=== PATIENT | male | born 1990 | race Caucasian/White ===

== ENCOUNTER 2021-02-12 04:47 | Emergency (ER) | payer BC, SELFPAY ==
[2021-02-12] VITALS (23 sets, daily range): BP systolic 126–168; BP diastolic 59–141; PULSE 90–123; RESP 6–30; TEMP 38.1–38.6; O2SAT 97–100
--- NOTE | ~2021-02-12 | XR_ITS ---
EXAMINATION: XR chest 1V portable DATE: 02/12/2021 06:45 INDICATION: Cough. Congestion. Fever. TECHNIQUE: A single frontal view of the chest was obtained on 2 radiographs. COMPARISON: None. FINDINGS: The chest demonstrates clear lungs without pneumonia, pleural effusion, or pneumothorax. Th e heart size is normal. IMPRESSION: 1. No acute cardiopulmonary disease. Reviewed, dictated and finalized at location A. [employer]
[2021-02-12] MEDS: ACETAMINOPHEN 500 MG TABLET 1000 MG PO (06:39)
--- NOTE | 2021-02-12 08:08 | ED.URI ---
HPI - URI/Sore Throat General Chief Complaint: Upper Respiratory Infection Stated Complaint: SOB, congestion Time Seen by Provider: 02/12/21 07:04 Source: patient and RN notes reviewed Mode of arrival: ambulatory Limitations: no limitations History of Present Illness HPI Narrative: This is a 30 year old male with history of anxiety who presents for evaluation of URI symptoms. He developed symptoms on . His symptoms started with sore throat, runny nose, nausea, congestion and fever. He reports mild cough as well. He has been taking Tylenol and ibuprofen for his symptoms. He states he is having difficulty breathing due to nasal congestion. HE also states he has had postnasal drainage now. He feels stopped up in his head and his hearing has decreased. He also reports a headache from his congestion.He denies chest pain. On arrival, he was found to have fever so he was given Tylenol. He is not vaccinated for COVID but he denies sick contacts. Related Data Home Medications Medication Instructions Recorded Confirmed citalopram 40 mg tablet 40 mg PO DAILY 03/25/19 11/27/20 lorazepam 0.5 mg tablet 0.5 mg PO TID PRN 03/25/19 11/27/20 Allergies Allergy/AdvReac Type Severity Reaction Status Date / Time cefaclor Allergy Severe Swelling Verified 12/28/20 08:28 Review of Systems Review of Systems: All systems reviewed & are unremarkable except as noted in HPI and below Constitutional: Constitutional: Reports chills and Reports fever(s) ENT: Reports nasal congestion and Reports sore throat Cardiovascular: Cardiovascular: Denies chest pain Respiratory: Respiratory: Denies chest congestion, Denies cough, Denies dyspnea and Denies wheezing Gastrointestinal: Gastrointestinal: Denies abdominal pain, Denies nausea and Denies vomiting Neurologic: Reports headache(s) [facility] Past Medical History Medical History (Updated 02/12/21 @ 09:39 by Alma Rosa Dee MD) Panic disorder Family History Family History Father Hypertension Family history of diabetes mellitus in first degree relative Social History Social History Smoking status: Never smoker Second hand tobacco smoke exposure: No Alcohol intake: never Substance use: former Gender identity (if verbalized by the patient): Male Exam Const: General: no acute distress and alert Orientation/consciousness: patient oriented x3 HENMT: Head: normocephalic and atraumatic Ears: TM abnormal dull, wth effusion and erythematous General nose exam: Nasal discharge present purulent Face and sinus: face symmetric Mouth: Yes lip normal, Yes tongue normal and Yes moist mucous membranes Throat: uvula midline and posterior oropharynx abnormal erythema Eyes: EOM: EOMs intact bilaterally Neck: Neck: normal visual inspection Chest: Chest palpation & inspection: normal inspection of the chest Resp: Effort & Inspection: normal respiratory effort and no retractions Auscultation: clear to auscultation bilaterally Cardio: Rate: regular rate Rhythm: regular rhythm Heart sounds: no murmurs GI: GI Palp: Yes Soft to palpation, No Tenderness to palpation present (GI) and No Guarding due to palpation present (GI) Auscultation: normal bowel sounds Neuro: General: patient oriented x3, moves all extremities and CN's II-XI intact bilaterally Psych: Mental Status: mental status grossly normal Affect: normal affect Course Reevaluation(s) Reevaluation #1: Patient will be treated for sinusitis, acute otitis media. Date: 02/12/21 Time: 09:37 Vital Signs Vital signs: Vital Signs Temperature 101.4 F H 02/12/21 04:56 Pulse Rate 112 H 02/12/21 04:56 Respiratory Rate 20 02/12/21 04:56 Blood Pressure 150/89 H 02/12/21 04:56 Pulse Oximetry 99 02/12/21 04:56 Temperature 100.6 F H 02/12/21 06:36 Pulse Rate 99 02/12/21 10:03
[2021-02-12] MEDS: AMOXICILLIN/CLAVULANATE K 875-125 MG TAB 1 TABLET PO (09:18)
[2021-02-12 19:00] LABS: SARS-CoV-2 RNA PCR Negative
== END 2021-02-12 10:04 | disposition home or self-care (01) ==
PROVIDERS: Emergency Provider General Practice; PCP Family Medicine
DX: H66.92 Otitis media, unspecified, left ear (principal); J06.9 Acute upper respiratory infection, unspecified; Z20.822 Contact with and (suspected) exposure to COVID-19
CPT/HCPCS: 71045; 87081; 87804; 87880; 99283; A9270; C9803; U0003; U0005

== ENCOUNTER 2021-09-29 08:23 | Emergency (ER) | payer OTHER, SELFPAY ==
[2021-09-29 08:32] VITALS: BP 144/80; PULSE 102; RESP 16; TEMP 36.9; O2SAT 99
--- NOTE | 2021-09-29 08:58 | ED.URI ---
HPI - URI/Sore Throat General Chief Complaint: Upper Respiratory Infection Stated Complaint: Sore Throat Time Seen by Provider: 09/29/21 08:58 Source: patient Mode of arrival: ambulatory Limitations: no limitations History of Present Illness HPI Narrative: 30-year-old male presents with complaint of sore throat, body aches, fatigue, fever for 2 days. He states that he took a home COVID test last night and it was negative. Reports history of strep as a child. Denies nausea vomiting diarrhea. All systems reviewed and negative except as noted above. Related Data Home Medications Medication Instructions Recorded Confirmed lorazepam 0.5 mg tablet (Ativan) 0.5 mg PO TID 03/25/19 09/29/21 paroxetine HCl 20 mg tablet (Paxil) 20 mg PO DAILY 08/16/21 09/29/21 Allergies Allergy/AdvReac Type Severity Reaction Status Date / Time cefaclor Allergy Severe Swelling Verified 08/16/21 08:21 Review of Systems Review of Systems: CONSTITUTIONAL: Reports fever, chills, or sweats. EYES: Denies visual changes, redness, or discharge. ENT: Denies rhinorrhea, congestion. Reports sore throa. Denies otalgia. CARDIOVASCULAR: Denies chest pain, palpitations, or edema. RESPIRATORY: Denies cough or dyspnea. GASTROINTESTINAL: Denies abdominal pain, nausea, vomiting, or diarrhea. GENITOURINARY: Denies dysuria or hematuria. SKIN: Denies rash or itching. MUSCULOSKELETAL: Denies back pain, joint pain. Reports myalgia. NEUROLOGIC: Denies headache, numbness, or weakness. PSYCHIATRIC: Denies anxiety or depression. All other systems reviewed are negative, except as documented in HPI. [facility] Past Medical History Medical History Panic disorder Family History Family History Father Hypertension Family history of diabetes mellitus in first degree relative Social History Social History (Updated 08/16/21 @ 08:21 by Clarice Gardner) Smoking packs per day: 0 Smoking cigarettes per day: 0.0 Years smoked: 0 Smoking pack-years: 0.00 Smoking status: Never smoker Second hand tobacco smoke exposure: No Alcohol intake: never Substance use: former Substance use type: does not use Gender identity (if verbalized by the patient): Male Sexual Orientation (if Verbalized by the Patient): Straight or Heterosexual Comments At time of signature, agree with nursing past medical, surgical, social and family history. There is no relevant family history pertinent to the presenting complaint. Exam Narrative: GENERAL: This is a well-nourished, well-developed patient, in no apparent distress. HEAD: normocephalic, atraumatic. EYES: PERRL. Sclera clear/white. Vision is grossly intact. EARS: External ears normal, auditory canals clear and without drainage, TMs normal without perforation. Hearing grossly intact. NOSE: External nose normal with no obvious nasal discharge, nares without redness, no rhinorrhea. THROAT: Mucous membranes moist, erythema and swelling to posterior pharynx. No exudates. NECK: Neck supple, non-tender without lymphadenopathy, masses or thyromegaly. CARDIOVASCULAR: Regular rate and rhythm without murmurs, gallops, or rubs. RESPIRATORY: Clear to auscultation. Breath sounds equal bilaterally. No wheezes, rales, or rhonchi. SKIN: warm, Dry, intact with no suspicious lesions or rash, good texture and turgor. NEURO: awake, alert, and oriented to person, place and time. There were no obvious focal neurologic abnormalities. EXTREMITIES: No joint tenderness, effusion, or edema noted. Course Course Level of Care: Express Care Visit Vital Signs Vital signs: Vital Signs Temperature 36.9 C 09/29/21 08:32 Pulse Rate 102 H 09/29/21 08:32 Respiratory Rate 16 09/29/21 08:32 Blood Pressure 144/80 H 09/29/21 08:32 Pulse Oximetry 99 09/29/21 08:32 Oxygen Delivery Room Air 09/29/21 08:32 Temperature 36.
== END 2021-09-29 09:09 | disposition home or self-care (01) ==
PROVIDERS: Emergency Provider Nurse Practitioner Family; PCP Family Medicine
DX: J02.0 Streptococcal pharyngitis (principal); F41.0 Panic disorder [episodic paroxysmal anxiety]
CPT/HCPCS: 87880; 99213; G0463

== ENCOUNTER 2021-10-13 11:19 | Emergency (ER) | payer OTHER, SELFPAY ==
--- NOTE | ~2021-10-13 | US_ITS ---
US scrotum doppler INDICATION: Testicular pain. TECHNIQUE: Testicular sonogram utilizing grayscale and color Doppler FINDINGS: The testes are normal in size and appearance. No focal lesions are seen. The right testes measures 5 x 3.3 x 2.5 cm centimeters, and the left testis measures 4.4 x 2.3 cm cm. There is increas ed vascularity of the right testicle. The right epididymis exhibits increased vascularity. There are small bilateral hydroceles. IMPRESSION: 1. Hypervascular right testicle and epididymis, consistent with epididymoorchitis. 2: Small hydroceles. Reviewed, dictated and finalized at location A. IMPRESSION: 1. Hypervascular right testicle and epididymis, consistent with epididymoorchi tis. 2: Small hydroceles.
[2021-10-13 11:59] VITALS: BP 115/64; PULSE 81; RESP 16; TEMP 36.9; O2SAT 97
--- NOTE | 2021-10-13 13:31 | ED.MALEGU ---
HPI - Male Genitourinary General Chief complaint: Urogenital-Male Stated complaint: testiclar pain Time Seen by Provider: 10/13/21 13:26 Source: patient Mode of arrival: ambulatory Limitations: no limitations History of Present Illness HPI Narrative: 30 years old white male came from home complaining of right testicular pain started 2 days ago, constant, worse with certain movement. He denies any fever, chills, nausea, vomiting, trauma, rash 6, lifting heavy stuff. Patient reported having similar symptoms in the past got better over 12 hours and spontaneously. Patient reports some burning sensation after finishing urination. He denies any penile discharge. Patient denies extramarital sex. at the bedside. Related Data Home Medications Medication Instructions Recorded Confirmed lorazepam 0.5 mg tablet (Ativan) 0.5 mg PO TID 03/25/19 09/29/21 paroxetine HCl 20 mg tablet (Paxil) 20 mg PO DAILY 08/16/21 09/29/21 Allergies Allergy/AdvReac Type Severity Reaction Status Date / Time cefaclor Allergy Severe Swelling Verified 08/16/21 08:21 Review of Systems Review of Systems: All systems reviewed & are unremarkable except as noted in HPI and below PMFSH Past Medical History Medical History Panic disorder Family History Family History Father Hypertension Family history of diabetes mellitus in first degree relative Social History Social History Smoking packs per day: 0 Smoking cigarettes per day: 0.0 Years smoked: 0 Smoking pack-years: 0.00 Smoking status: Never smoker Second hand tobacco smoke exposure: No Alcohol intake: never Substance use: former Substance use type: does not use Gender identity (if verbalized by the patient): Male Sexual Orientation (if Verbalized by the Patient): Straight or Heterosexual Exam Narrative: General appearance: Well-developed, well-nourished Skin: Normal color Head: Normocephalic, nontraumatic Eyes: Clear conjunctiva ENT: Oropharynx normal, ears normal, nose normal Neck: Supple, nontender Chest and respiratory: Airway patent, no respiratory distress, no accessory muscle use Heart: Regular rate/rhythm Abdomen: Soft, nontender, no organomegaly, quiet bowel sounds Vascular: Normal peripheral pulses, normal capillary refill. Musculoskeletal: Normal range of motion, nontender back Neurologic: Alert and oriented ?3, [employer] is normal as tested, no gross motor deficit : Penis: Yes normal penis and Yes circumcised Scrotum: scrotum normal Testes: testicular swelling and testicular tenderness Other: No rash Course Course Emergency Course: Work-up today showed that the patient have epididymal orchitis. Patient is 30 years old. STD is a possibility. Patient is , denies any extramarital affair, his at the bedside denying any genital abnormality or discharge. Patient also denies practicing anal sex. Patient is allergic to cefaclor, patient had history of strep throat finished 10 days course of amoxicillin 5 days ago. Patient will be discharged on Levaquin to follow-up with urologist in 3 to 5 days Vital Signs Vital signs: Vital Signs Temperature 36.9 C 10/13/21 11:59 Pulse Rate 81 10/13/21 11:59 Respiratory Rate 16 10/13/21 11:59 Blood Pressure 115/64 10/13/21 11:59 Pulse Oximetry 97 10/13/21 11:59 Oxygen Delivery Room Air 10/13/21 11:59 Temperature 36.9 C 10/13/21 11:59 Pulse Rate 81 10/13/21 11:59 Respiratory Rate 16 10/13/21 11:59 Blood Pressure 115/64 10/13/21 11:59
[2021-10-13 13:32] LABS: Appearance Urine Clear (Clear); Bilirubin Urine Negative (Negative); Blood Urine Negative (Negative); Color Urine Yellow (Yellow); Glucose Urine UA Negative (Negative); Ketones Urine Trace mg/dL (Negative); Leukocyte Esterase Ur Negative LEU/UL (Negative); Nitrate Urine Negative (Negative); Protein Urine Trace mg/dL (Negative); Specific Grav Ur 1.025 (1.001-1.035)
[2021-10-13 13:36] LABS: Add Urine Microscopic? YES
[2021-10-13] MEDS: HYDROcodone/acetaminophen (*CRX) 5-325 MG TABLET 1 TAB PO (13:39)
[2021-10-13 13:42] LABS: Mucus Urine Heavy /lpf; RBC Urine 0-2 /hpf (0-2); Squamous Epithelial Cell Urine Rare /hpf (Few); WBC Urine 0-3 /hpf
[2021-10-13 16:07] VITALS: BP 126/77; PULSE 76; RESP 18; O2SAT 98
== END 2021-10-13 16:08 | disposition home or self-care (01) ==
PROVIDERS: Emergency Provider Emergency Medicine; PCP Family Medicine
DX: N45.3 Epididymo-orchitis (principal); F41.0 Panic disorder [episodic paroxysmal anxiety]
CPT/HCPCS: 76870; 81001; 93976; 99284; A9270

== ENCOUNTER 2022-01-31 09:29 | Outpatient (CLI) | payer OTHER, SELFPAY ==
--- NOTE | ~2022-01-31 | XR_ITS ---
EXAMINATION: XR chest 2V 01/31/2022 10:01 INDICATION: Shortness of breath PROCEDURE: 2 view chest COMPARISON: 02/12/2021 FINDINGS: The lungs are clear. The cardiomediastinal silhouette is within normal limits. There are no pleural effusions. There is no pneumothorax suspected. IMPRESSION: 1: NO ACUTE CARDIOPULMONARY DISEASE. Reviewed, dictated and finalized at location B.
[2022-01-31 10:02] LABS: Basophils Absolute Auto 0.1 K/mm3 (0.0-0.1); Basophils Percent Auto 0.8 % (0.2-1.2); Eosinophils Absolute Auto 0.1 K/mm3 (0-0.3); Eosinophils Percent Auto 1.4 % (0-4.4); Hematocrit 43.7 % (42.0-52.0); Hemoglobin 14.6 g/dL (14.0-18.0); Immature Granulocyte Absolute 0.02 K/mm3 (0.00-0.031); Immature Granulocyte Percent A 0.3 % (0-0.5); Lymphocytes Absolute Auto 2.99 K/mm3 (0.9-3.2); Lymphocytes Percent Auto 45.2 % (18.3-44.2); Mean Corpuscular HGB Conc 33.4 g/dl (32-36); Mean Corpuscular Hemoglobin 29.6 pg (26-34); Mean Corpuscular Volume 88.6 fl (80-100); Mean Platelet Volume 9.8 fl (7.4-10.4); Monocytes Absolute Auto 0.5 K/mm3 (0.1-0.6); Monocytes Percent Auto 6.8 % (2.6-8.5); Neutrophils Percent Auto 45.5 % (45.5-73.1); Platelet Count Result 216 k/mm3 (150-375); Red Blood Count 4.93 M/mm3 (4.6-6.20); Red Cell Distribution Width 13.1 % (11.5-14.5); White Blood Count 6.6 K/mm3 (4.5-10.0)
[2022-01-31 10:05] LABS: Add Urine Microscopic? NO; Appearance Urine Clear (Clear); Bilirubin Urine Negative (Negative); Blood Urine Negative (Negative); Color Urine Yellow (Yellow); Glucose Urine UA Negative (Negative); Ketones Urine Negative (Negative); Leukocyte Esterase Ur Negative LEU/UL (NEGATIVE); Nitrate Urine Negative (Negative); Protein Urine Negative (Negative); Urobilinogen Urine Negative mg/dL (<2.0)
[2022-01-31 10:14] LABS: Alanine Aminotransferase 51 U/L (6-50); Albumin Level 4.7 g/dL (3.5-5.1); Alkaline Phosphatase 76 U/L (38-126); Anion Gap 9 mmol/L (8-16); Aspartate Amino Transferase 33 U/L (17-59); Blood Urea Nitrogen 16 mg/dL (9-20); Calcium 8.9 mg/dL (8.4-10.2); Carbon Dioxide 28 mmol/L (22-30); Chloride 103 mmol/L (98-107); Cholesterol 198 mg/dL (0-200); Estimated Glomerular Filt Rate > 60; Glucose 98 mg/dL (65-110); HDL Direct 39 mg/dL; Potassium 4.3 mmol/L (3.4-5.0); Sodium 140 mmol/L (137-145); Triglycerides 253 mg/dL (<150)
[2022-01-31 10:25] LABS: LDL Cholesterol Direct 103 mg/dL
== END 2022-01-31 09:30 | disposition home or self-care (01) ==
LOC: ANHLAB 09:32
PROVIDERS: PCP Family Medicine; Visit Provider Physician Assistant
DX: R06.02 Shortness of breath (principal); F41.0 Panic disorder [episodic paroxysmal anxiety]; G47.30 Sleep apnea, unspecified; K21.9 Gastro-esophageal reflux disease without esophagitis; Z00.00 Encounter for general adult medical examination without abnormal findings
CPT/HCPCS: 36415; 71046; 80053; 80061; 81003; 84443; 85025

== ENCOUNTER 2022-02-08 07:57 | Outpatient (CLI) | payer OTHER, SELFPAY ==
--- NOTE | 2022-02-08 14:07 | WPDPFTINT ---
PFT Procedure Performed PFT Procedure Performed Plethysmography (Lung Vol) Diffusing Cap (DLCO) Flow Vol Loop Spirometry w/o Bronchodil PFT Interpretation Lung volumes were measured with the body plethysmography method. The borderline normal total lung capacity and the diminished expiratory reserve volume could be related to obesity. The remaining lung volumes are unremarkable. Spirometry showed normal expiratory flow rates and a normal FEV1 to FVC ratio of 86%. No post bronchodilator study was carried out. Lung diffusion capacity is within the normal range at 97% predicted. The flow volume loop is unremarkable. Overall, this study could be consistent with obesity. Clinical correlation advised. Impression: Spirometry and lung diffusion capacity within the normal range. Borderline total lung capacity and diminished expiratory reserve volume could be due to obesity. Clinical correlation advised.
== END 2022-02-08 07:58 | disposition home or self-care (01) ==
LOC: ANHPFT 08:00
PROVIDERS: PCP Family Medicine; Visit Provider Physician Assistant
DX: R06.02 Shortness of breath (principal)
CPT/HCPCS: 94375; 94726; 94729

== ENCOUNTER 2022-08-12 19:30 | Emergency (ER) | payer OTHER, SELFPAY ==
[2022-08-12 19:36] VITALS: BP 137/91; PULSE 85; RESP 16; TEMP 37.2; O2SAT 99
--- NOTE | 2022-08-12 19:44 | ED.EYEPROB ---
HPI - Eye Problem General Chief complaint: Eye Problems Stated complaint: right eye injury Time Seen by Provider: 08/12/22 19:44 Source: patient, RN notes reviewed and old records reviewed Mode of arrival: ambulatory Limitations: no limitations History of Present Illness HPI Narrative: 31-year-old male presents to the [facility] with right eye injury. Redness to the right medial aspect of eye. States this morning he poked himself in the eye with a screwdriver. Denies pain, blurry vision or change in vision. Patient is 20/20 right, 20/20 left as well as 20/20 bilateral Has an appointment with [facility] on Friday Last Tdap 2016 Onset (ago): hour(s) Related Data Patient tetanus UTD: No Home Medications Medication Instructions Recorded Confirmed lorazepam 0.5 mg tablet (Ativan) 0.5 mg PO TID 03/25/19 08/12/22 paroxetine HCl 20 mg tablet (Paxil) 20 mg PO DAILY 08/16/21 08/12/22 Allergies Allergy/AdvReac Type Severity Reaction Status Date / Time cefaclor Allergy Severe Swelling Verified 08/12/22 19:35 Review of Systems Review of Systems: All systems reviewed & are unremarkable except as noted in HPI and below Constitutional: Constitutional: Reports no additional constitutional complaints Eyes: Eyes: Reports as per HPI ENT: Reports system reviewed and no additional complaints, except as documented Cardiovascular: Cardiovascular: Reports no additional cardiovascular complaints, Denies chest pain and Denies dyspnea Respiratory: Respiratory: Reports no additional respiratory complaints, Denies chest congestion, Denies cough and Denies dyspnea Gastrointestinal: Gastrointestinal: Reports no additional gastrointestinal complaints, Denies abdominal pain, Denies nausea and Denies vomiting Musculoskeletal: Musculoskeletal: Reports no additional musculoskeletal complaints Integumentary/Breasts: Skin/Breast: Reports system reviewed and no additional complaints, except as docu Neurologic: Reports system reviewed and no additional complaints, except as documented Psychiatric: Psychiatric: Reports no additional psychiatric complaints Allergic/Immunologic: Allergic/Immunologic: Reports no additional allergic/immunologic complaints PMFSH Past Medical History Medical History Panic disorder Family History Family History Father Hypertension Family history of diabetes mellitus in first degree relative Social History Social History Social History: Smoking status: Never smoker Second hand tobacco smoke exposure: No Alcohol intake: never Substance use: former Substance use type: does not use Living arrangements: with family Occupation/Education: occupation Gender identity (if verbalized by the patient): Male Sexual Orientation (if Verbalized by the Patient): Straight or Heterosexual Comments At the time of my signature, I reviewed and agree with the nursing past medical, surgical, social, and family history. There is no relevant family history pertinent to the patient complaint. Exam Const: General: cooperative, healthy appearing, comfortable, no acute distress, well developed, alert and well nourished Nutritional Appearance: well nourished Orientation/consciousness: patient oriented x3 Limitations: no limitations HENMT: Head: normal to inspection Ears: hearing grossly normal bilaterally and external ears normal Face/Nose/Sinus: Normal external nose present, Normal nares present, Normal nasal mucous membranes and turbinates present and normal facial exam Face and sinus: normal facial exam Mouth: Yes Normal oral and palatal mucosa present, Yes lip normal and Yes moist mucous membranes Throat: posterior oropharynx normal and uvula midline Eyes: Visual Rendon: normal visual rendon by confrontation Alignment and Po
[2022-08-12] MEDS: TETANUS,DIPHTHERIA,AC PERTUSSIS ADULT (0.5 ML) BOOSTRIX IM (20:19)
== END 2022-08-12 20:25 | disposition home or self-care (01) ==
PROVIDERS: Emergency Provider Nurse Practitioner; PCP Family Medicine
DX: S05.01XA Injury of conjunctiva and corneal abrasion without foreign body, right eye, initial encounter (principal); W27.0XXA Contact with workbench tool, initial encounter; Z23 Encounter for immunization
CPT/HCPCS: 90471; 90715; 99213; A9270; G0463

== ENCOUNTER 2023-06-06 13:54 | Emergency (ER) | payer OTHER, SELFPAY ==
[2023-06-06 14:36] VITALS: BP 144/100; PULSE 116; RESP 18; TEMP 39; O2SAT 98
[2023-06-06] MEDS: SODIUM CHLORIDE 0.9% IV 1,000 ML 999 ML IV CONT (15:49)
[2023-06-06] MEDS: ACETAMINOPHEN 500 MG TABLET 1000 MG PO (15:49)
[2023-06-06] MEDS: KETOROLAC 30 MG/ML VIAL (*BKC) IV PUSH (15:49)
[2023-06-06 16:31] LABS: Influenza A QL RT-PCR Negative (Negative); Influenza B QL RT-PCR Negative (Negative); RSV RNA, RT-PCR Negative (Negative); SARS-CoV-2 RNA PCR Negative (Negative)
[2023-06-06 17:45] LABS: Strep Group A RT-PCR DETECTED (Negative)
--- NOTE | 2023-06-06 17:49 | ED.GENADULT ---
HPI - General Adult General Chief complaint: Upper Respiratory Infection Stated complaint: headache/fever Time Seen by Provider: 06/06/23 15:28 History of Present Illness HPI narrative: Patient is a 32-year-old male who presents ER with a febrile illness. Onset over last 2 days. So she with headache and sore throat. No cough. He has mild discomfort in his right ear. Has a daughter who is currently sick with a cough. She has no formal diagnosis. Patient without chest pain shortness of breath. No change in vision or hearing. Reports history of recurrent strep as a child had his tonsils out. Related Data Home Medications Medication Instructions Recorded Confirmed lorazepam 0.5 mg tablet (Ativan) 0.5 mg PO TID 03/25/19 06/06/23 paroxetine HCl 20 mg tablet (Paxil) 20 mg PO DAILY 08/16/21 06/06/23 Allergies Allergy/AdvReac Type Severity Reaction Status Date / Time cefaclor Allergy Severe Swelling Verified 06/06/23 13:10 Review of Systems Constitutional: Constitutional: Reports chills, Reports fatigue and Reports fever(s) ENT: Reports nasal congestion and Reports sore throat Respiratory: Respiratory: Denies cough, Denies dyspnea and Denies wheezing Neurologic: Denies syncope, Reports headache(s), Denies focal weakness and Denies numbness PMFSH Past Medical History Medical History (Updated 06/06/23 @ 22:32 by Rj Winters MD) GERD (gastroesophageal reflux disease) Panic disorder Surgical History Surgical History (Updated 06/06/23 @ 22:32 by Rj Winters MD) History of tonsillectomy Family History Family History Father Hypertension Family history of diabetes mellitus in first degree relative Social History Social History Social History: Smoking status: Never smoker Second hand tobacco smoke exposure: No Alcohol intake: never Substance use: former Substance use type: does not use Living arrangements: with family Occupation/Education: occupation Gender identity (if verbalized by the patient): Male Sexual Orientation (if Verbalized by the Patient): Straight or Heterosexual Exam Narrative: GENERAL: fatigued-appearing, well-nourished, and in no acute distress. HEAD: Normocephalic, atraumatic. ENT: Mucous membranes moist. normal appearing posterior oropharynx. TMs normal bilaterally. NECK: Supple. CHEST: Clear to auscultation. No respiratory distress. HEART: Regular rate and rhythm. Normal peripheral pulses. ABDOMEN: Soft, nontender, nondistended. EXTREMITIES: Normal range of motion. No edema. SKIN: Warm, diaphoretic, no rash. NEURO: Alert and oriented x3. PSYCH: Normal mood and affect. Course Course Emergency Course: Patient formed results. He reports he has had prior therapy with amoxicillin and can take it safely. Discharge home with antibiotic prescription. Headache resolved and feels much better after Toradol /Tylenol/ IV fluid. Vital Signs Vital signs: Vital Signs Temperature 102.2 F H 06/06/23 14:36 Pulse Rate 116 H 06/06/23 14:36 Respiratory Rate 18 06/06/23 14:36 Blood Pressure 144/100 H 06/06/23 14:36 Pulse Oximetry 98 06/06/23 14:36 Oxygen Delivery Room Air 06/06/23 14:36 Temperature 98.9 F 06/06/23 18:18 Pulse Rate 77 06/06/23 18:18 Respiratory Rate 18 06/06/23 18:18 Blood Pressure 147/88 H 06/06/23 18:18 Pulse Oximetry 99 06/06/23 18:18 Oxygen Delivery Room Air 06/06/23 14:36 Medical Decision Making Vital Signs Vital Signs: Vital Signs Temperature 102.2 F H 06/06/23 14:36 Pulse Rate 116 H 06/06/23 14:36 Respiratory Rate 18 06/06/23 14:36 Blood Pressure 144/100 H 06/06/23 14:36 Pulse Oximetry 98 06/06/23 14:36 Oxygen Delivery Room Air 06/06/23 14:36 Temperature 98.9 F 06/06/23 18:18 Pulse Rate 77 06/06/23 18:18 Respiratory Rate
[2023-06-06 18:18] VITALS: BP 147/88; PULSE 77; RESP 18; TEMP 37.2; O2SAT 99
== END 2023-06-06 18:20 | disposition home or self-care (01) ==
PROVIDERS: Emergency Provider Emergency Medicine; PCP Family Medicine
DX: J02.0 Streptococcal pharyngitis (principal); Z79.899 Other long term (current) drug therapy; Z20.822 Contact with and (suspected) exposure to COVID-19
CPT/HCPCS: 87637; 87651; 96361; 96374; 99284; A9270; J1885; J7030

== ENCOUNTER 2023-06-07 17:57 | Emergency (ER) | payer OTHER, SELFPAY ==
[2023-06-07 18:02] VITALS: BP 155/76; PULSE 102; RESP 15; TEMP 37.5; O2SAT 98
--- NOTE | 2023-06-07 18:46 | ED.GENADULT ---
[facility] - General Adult General Chief complaint: Headache Stated complaint: migraine Time Seen by Provider: 06/07/23 18:16 Source: patient Mode of arrival: ambulatory Limitations: no limitations History of Present Illness HPI narrative: This is a 32-year-old male who presents to the ED for chief complaint of headache after diagnosis of strep throat yesterday. Reports pain to the right side of the neck and head. Reports he had a lot of relief Toradol yesterday ibuprofen Tylenol did not today. He was given amoxicillin prescription and started this today. Denies drooling, trismus, muffled voice or fevers. Denies nausea, vomiting, neck pain or trouble swallowing. Related Data Home Medications Medication Instructions Recorded Confirmed lorazepam 0.5 mg tablet (Ativan) 0.5 mg PO TID 03/25/19 06/06/23 paroxetine HCl 20 mg tablet (Paxil) 20 mg PO DAILY 08/16/21 06/06/23 Allergies Allergy/AdvReac Type Severity Reaction Status Date / Time cefaclor Allergy Severe Swelling Verified 06/06/23 13:10 Review of Systems Review of Systems: All systems as dictated in [facility] Past Medical History Medical History (Updated 06/08/23 @ 00:00 by Rafael Rebolledo) GERD (gastroesophageal reflux disease) Panic disorder Surgical History Surgical History (Updated 06/06/23 @ 22:32 by Rj Winters MD) History of tonsillectomy Family History Family History Father Hypertension Family history of diabetes mellitus in first degree relative Social History Social History Social History: Smoking status: Never smoker Second hand tobacco smoke exposure: No Alcohol intake: never Substance use: former Substance use type: does not use Living arrangements: with family Occupation/Education: occupation Gender identity (if verbalized by the patient): Male Sexual Orientation (if Verbalized by the Patient): Straight or Heterosexual Exam Narrative: GENERAL: Well-appearing, well-nourished, and in no acute distress. HEAD: Normocephalic, atraumatic. EYES: PERRLA and EOMI. ENT: No trismus. No drooling. Floor of the mouth intact. No significant facial swelling. No muffled voice. Uvula midline. Erythema present to the posterior pharynx. Nares clear, no rhinorrhea or epistaxis. Mucous membranes moist. Oropharynx without tonsillar hypertrophy exudate or other lesions. NECK: Supple. No adenopathy or masses. CHEST: No respiratory distress. Clear to auscultation. No wheezes rales or rhonchi HEART: Regular rate and rhythm. No murmur heard. Normal peripheral pulses. ABDOMEN: Soft, nontender, nondistended, normal active bowel sounds. MSK: Normal range of motion. No edema. SKIN: Warm, dry, no rash. NEURO: Alert and oriented x3. No focal deficits. PSYCH: Normal mood and affect. Course Vital Signs Vital signs: Vital Signs Temperature 99.5 F 06/07/23 18:02 Pulse Rate 102 H 06/07/23 18:02 Respiratory Rate 15 06/07/23 18:02 Blood Pressure 155/76 H 06/07/23 18:02 Pulse Oximetry 98 06/07/23 18:02 Oxygen Delivery Room Air 06/07/23 18:02 Temperature 99.5 F 06/07/23 18:02 Pulse Rate 90 06/07/23 19:59 Respiratory Rate 16 06/07/23 19:59 Blood Pressure 144/86 H 06/07/23 19:59 Pulse Oximetry 98 06/07/23 19:59 Oxygen Delivery Room Air 06/07/23 18:02 Medical Decision Making [facility] Narrative Medical decision making narrative: This is a 32-year-old male who presents to the ED for chief complaint of right-sided headache and sore throat. Diagnosed with strep throat yesterday. Vitals are normal. 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 Lab work is unremarkable. He improved markedly with Toradol and Tylenol here. Prescription for Toradol written. Pt will be discharged in stable condition. Retu
[2023-06-07 19:11] LABS: Basophils Absolute Auto 0.1 K/mm3 (0.0-0.1); Basophils Percent Auto 0.4 % (0.2-1.2); Eosinophils Absolute Auto 0.1 K/mm3 (0-0.3); Eosinophils Percent Auto 0.5 % (0-4.4); Hematocrit 41.3 % (42.0-52.0); Hemoglobin 13.8 g/dL (14.0-18.0); Immature Granulocyte Absolute 0.05 K/mm3 (0.00-0.031); Immature Granulocyte Percent A 0.4 % (0-0.5); Lymphocytes Absolute Auto 2.74 K/mm3 (0.9-3.2); Lymphocytes Percent Auto 20.8 % (18.3-44.2); Mean Corpuscular HGB Conc 33.4 g/dl (32-36); Mean Corpuscular Hemoglobin 29.4 pg (26-34); Mean Corpuscular Volume 88.1 fl (80-100); Mean Platelet Volume 9.8 fl (7.4-10.4); Monocytes Absolute Auto 1.2 K/mm3 (0.1-0.6); Monocytes Percent Auto 9.2 % (2.6-8.5); Neutrophils Absolute Auto 9.1 K/mm3 (1.3-6.7); Neutrophils Percent Auto 68.7 % (45.5-73.1); Platelet Count Result 198 k/mm3 (150-375); Red Blood Count 4.69 M/mm3 (4.6-6.20); White Blood Count 13.2 K/mm3 (4.5-10.0)
[2023-06-07] MEDS: ACETAMINOPHEN 500 MG TABLET 1000 MG PO (19:11)
[2023-06-07] MEDS: SODIUM CHLORIDE 0.9% IV 1,000 ML 999 ML IV CONT (19:11)
[2023-06-07] MEDS: KETOROLAC 15 MG/ML VIAL (*BKC) IV PUSH (19:11)
[2023-06-07 19:21] LABS: Alanine Aminotransferase 42 U/L (6-50); Albumin Level 4.5 g/dL (3.5-5.1); Alkaline Phosphatase 81 U/L (38-126); Anion Gap 8 mmol/L (8-16); Aspartate Amino Transferase 34 U/L (17-59); Bilirubin,Total 1.4 mg/dL (0.2-1.3); Blood Urea Nitrogen 14 mg/dL (9-20); Calcium 9.5 mg/dL (8.4-10.2); Carbon Dioxide 26 mmol/L (22-30); Chloride 105 mmol/L (98-107); Estimated CRCL calculation 135 ml/min; Estimated Glomerular Filt Rate > 60; Glucose 113 mg/dL (65-110); Potassium 4.1 mmol/L (3.4-5.0); Sodium 139 mmol/L (137-145)
[2023-06-07 19:59] VITALS: BP 144/86; PULSE 90; RESP 16; O2SAT 98
== END 2023-06-07 19:59 | disposition home or self-care (01) ==
PROVIDERS: Emergency Provider Physician Assistant; PCP Family Medicine
DX: R51.9 Headache, unspecified (principal); J02.0 Streptococcal pharyngitis; K21.9 Gastro-esophageal reflux disease without esophagitis; F41.0 Panic disorder [episodic paroxysmal anxiety]
CPT/HCPCS: 36415; 80053; 85025; 96374; 99284; A9270; J1885; J7030

== ENCOUNTER 2023-06-28 15:30 | Emergency (ER) | payer OTHER, SELFPAY ==
[2023-06-28 15:40] VITALS: BP 151/83; PULSE 91; RESP 16; TEMP 37.4; O2SAT 98
--- NOTE | 2023-06-28 16:39 | ED.URI ---
HPI - URI/Sore Throat General Chief Complaint: Upper Respiratory Infection Stated Complaint: previous strep, headcold , cough History of Present Illness HPI Narrative: 32-year-old male presented for complaint of sore throat, nasal congestion and cough. Onset 3 days. He states he completed a course of amoxicillin for positive strep about 3 days prior to symptoms returning. He denies shortness breath, wheezing nausea, vomiting, fevers or chills. He has not taken anything for symptoms. Related Data Home Medications Medication Instructions Recorded Confirmed paroxetine HCl 20 mg tablet (Paxil) 20 mg PO DAILY 08/16/21 06/28/23 Allergies Allergy/AdvReac Type Severity Reaction Status Date / Time cefaclor Allergy Severe Swelling Verified 06/28/23 16:06 Review of Systems Review of Systems: CONSTITUTIONAL: Denies body aches, fever, chills, or sweats. EYES: Denies visual changes, redness, or discharge. ENT: reports rhinorrhea, congestion, sore throat denies otalgia. CARDIOVASCULAR: Denies chest pain, palpitations, or edema. RESPIRATORY: Reports cough Denies dyspnea. GASTROINTESTINAL: Denies abdominal pain, nausea, vomiting, or diarrhea. SKIN: Denies rash, itching, or wounds. MUSCULOSKELETAL: Denies back pain, joint pain, or myalgia. NEUROLOGIC: Denies headache PMFSH Past Medical History Medical History GERD (gastroesophageal reflux disease) Panic disorder Surgical History Surgical History History of tonsillectomy Family History Family History Father Hypertension Family history of diabetes mellitus in first degree relative Social History Social History Social History: Smoking status: Never smoker Second hand tobacco smoke exposure: No Alcohol intake: never Substance use: former Substance use type: does not use Living arrangements: with family Occupation/Education: occupation Gender identity (if verbalized by the patient): Male Sexual Orientation (if Verbalized by the Patient): Straight or Heterosexual Exam Narrative: GENERAL: well-appearing, no acute distress. EYES: conjunctivae clear ENT: Mucous membranes moist. Nasal congestion. TMs pearly cooley with normal light reflex bilaterally; no tragal tenderness. Oropharynx erythematous without lesions. Tonsils absent. No drooling, no hoarseness, no trismus, uvula midline. No tripod positioning, hot potato voice, or soft palate swelling. NECK: Supple. No lymphadenopathy CHEST: Clear to auscultation, breath sounds equal. No respiratory distress, speaks in full sentences. HEART: Regular rate and rhythm. No murmur heard. SKIN: Warm, dry, no rash. NEURO: Alert and oriented x3. Course Course Emergency Course: Patient is aware of diagnosis, understands and agrees to treatment plan. Anticipatory guidance given. Patient agrees to follow-up as directed and is aware of reasons to seek care at the emergency department. Portions of this record may have been created with voice recognition software Level of Care: Express Care Visit Vital Signs Vital signs: Vital Signs Temperature 99.3 F 06/28/23 15:40 Pulse Rate 91 06/28/23 15:40 Respiratory Rate 16 06/28/23 15:40 Blood Pressure 151/83 H 06/28/23 15:40 Pulse Oximetry 98 06/28/23 15:40 Oxygen Delivery Room Air 06/28/23 15:40 Temperature 99.3 F 06/28/23 15:40 Pulse Rate 91 06/28/23 15:40 Respiratory Rate 16 06/28/23 15:40 Blood Pressure 151/83 H 06/28/23 15:40 Pulse Oximetry 98 06/28/23 15:40 Oxygen Delivery Room Air 06/28/23 15:40 MDM - URI/Sore Throat MDM Narrative Medical decision making narrative: POS strep result reviewed with pt. discussed physical exam findings. Reviewed Rx. Advise supportive ramón
== END 2023-06-28 16:55 | disposition home or self-care (01) ==
PROVIDERS: Emergency Provider Nurse Practitioner Family; PCP Family Medicine
DX: J02.0 Streptococcal pharyngitis (principal); K21.9 Gastro-esophageal reflux disease without esophagitis; F41.0 Panic disorder [episodic paroxysmal anxiety]
CPT/HCPCS: 87880; 99213; G0463

== ENCOUNTER 2023-11-19 09:44 | Outpatient (CLI) | payer OTHER, SELFPAY ==
[2023-11-19 10:10] LABS: Add Urine Microscopic? YES; Appearance Urine Clear (Clear); Bacteria Urine None Seen /hpf; Bilirubin Urine Negative (Negative); Blood Urine Negative (Negative); Color Urine Yellow (Yellow); Glucose Urine UA Negative (Negative); Ketones Urine Negative (Negative); Leukocyte Esterase Ur Negative LEU/UL (Negative); Nitrate Urine Negative (Negative); Non Pathogenic Casts 0-2; Protein Urine Trace mg/dL (Negative); RBC Urine 0-2 /hpf (0-2); Specific Grav Ur 1.023 (1.001-1.035); Squamous Epithelial Cell Urine None Seen /hpf (Few); Urobilinogen Urine 0.2 mg/dL (<2.0); WBC Urine 0-5 /hpf (0-3)
[2023-11-19 10:14] LABS: Hematocrit 46.2 % (42.0-52.0); Hemoglobin 15.5 g/dL (14.0-18.0); Mean Corpuscular HGB Conc 33.5 g/dl (32-36); Mean Corpuscular Hemoglobin 29.6 pg (26-34); Mean Corpuscular Volume 88.3 fl (80-100); Mean Platelet Volume 10.2 fl (7.4-10.4); Platelet Count Result 230 k/mm3 (150-375); Red Blood Count 5.23 M/mm3 (4.6-6.20); Red Cell Distribution Width 13.1 % (11.5-14.5); White Blood Count 7.1 K/mm3 (4.5-10.0)
[2023-11-19 10:24] LABS: Alanine Aminotransferase 75 U/L (6-50); Albumin Level 4.8 g/dL (3.5-5.1); Alkaline Phosphatase 70 U/L (38-126); Anion Gap 10 mmol/L (4-12); Aspartate Amino Transferase 54 U/L (17-59); Bilirubin,Total 1.2 mg/dL (0.2-1.3); Blood Urea Nitrogen 15 mg/dL (9-20); Calcium 9.6 mg/dL (8.4-10.2); Carbon Dioxide 30 mmol/L (22-30); Chloride 101 mmol/L (98-107); Cholesterol 216 mg/dL (0-200); Estimated Glomerular Filt Rate > 60; Glucose 98 mg/dL (65-110); HDL Direct 40 mg/dL; Potassium 4.7 mmol/L (3.4-5.0); Sodium 141 mmol/L (137-145); Triglycerides 309 mg/dL (<150)
[2023-11-19 10:35] LABS: LDL Cholesterol Direct 122 mg/dL
[2023-11-19 11:18] LABS: Hemoglobin A1C 5.6 % (<5.7)
== END 2023-11-19 09:45 | disposition home or self-care (01) ==
LOC: ANHLAB 09:46
PROVIDERS: PCP Family Medicine; Visit Provider Physician Assistant Medical
DX: Z00.00 Encounter for general adult medical examination without abnormal findings (principal); F41.0 Panic disorder [episodic paroxysmal anxiety]; E66.9 Obesity, unspecified
CPT/HCPCS: 36415; 80053; 80061; 81001; 83036; 84443; 85027

== ENCOUNTER 2023-12-03 12:28 | Emergency (ER) | payer OTHER, SELFPAY ==
--- NOTE | 2023-12-03 12:32 | ED.BACK ---
HPI - Back Pain/Injury General Chief Complaint: Back Pain/Injury Stated Complaint: back pain Time Seen by Provider: 12/03/23 12:31 Source: patient Mode of arrival: ambulatory Limitations: no limitations History of Present Illness HPI Narrative: Carlos is a 33-year-old male patient presenting to the clinic today with complaints of right sided back pain x 6 days. He reports no known injury. Denies any urinary symptoms. States the pain is a dull ache and is constant. Pain is worse with sitting and bending forward. Thinks he may have pulled a muscle when he was sleeping. Pain does radiate under the right ribs. Denies any GERD symptoms. Denies chest pain or shortness of breath. No URI symptoms. Related Data Home Medications Medication Instructions Recorded Confirmed lorazepam 1 mg tablet 1 mg PO DAILY PRN Anxiety 11/20/23 12/03/23 Allergies Allergy/AdvReac Type Severity Reaction Status Date / Time cefaclor Allergy Severe Swelling Verified 12/03/23 12:30 Review of Systems Review of Systems: Pertinent positives per HPI. Patient denies any fever, chills, rash, headache, visual changes, dizziness, cough, runny nose, sore throat, shortness of breath, chest pain, palpitations, nausea, vomiting, diarrhea, constipation, abdominal pain, or any urinary issues. [facility] Past Medical History Medical History GERD (gastroesophageal reflux disease) SIDDHARTHA (obstructive sleep apnea) Panic disorder Surgical History Surgical History History of tonsillectomy Family History Family History Father Hypertension Family history of diabetes mellitus in first degree relative Social History Social History Social History: Smoking status: Never smoker Second hand tobacco smoke exposure: No Alcohol intake: never Substance use: former Substance use type: does not use Do You Feel Safe in your Home?: Yes Lack of Transportation: No Lack of Food: Never True Current Housing: I Have Housing Concerned About Future Housing: No Difficulty Paying Gas/Electric Bills: No Difficulty Paying for Meds: No Currently Unemployed: No Education: Don't Know Difficulty w/ Childcare or Family Care: No Living arrangements: with family Occupation/Education: occupation Gender identity (if verbalized by the patient): Male Sexual Orientation (if Verbalized by the Patient): Straight or Heterosexual Comments At the time of my signature, I reviewed and agree with the nursing past medical, surgical, social, and family history. There is no relevant family history pertinent to the patient complaint. Exam Narrative: General: Well-developed, well nourished, in no apparent distress Head: Normocephalic, atraumatic. Cardio: Regular rate and rhythm, s1 and s2 normal, no murmur appreciated. Resp: Clear to auscultation bilaterally, no rhonchi, rales, wheezing or rubs. Musculoskeletal: No deformity, non-tender to palpation, grossly normal range of motion, muscle strength strong and equal, peripheral pulse strong, no edema, no cyanosis, normal gait and station Course Course Emergency Course: Portions of this record may have been created with voice recognition software. Level of Care: Express Care Visit Vital Signs Vital signs: Vital signs reviewed MDM - Back Pain/Injury MDM Narrative Medical decision making narrative: At the time of visit patient is resting comfortably on the exam table. Patient appears to be nontoxic. Plan: I suspect patient likely has a muscle strain to the right thoracic back. Will send in prescription for baclofen and naproxen. Supportive measures were discussed with the patient and they voiced understanding discharge instructions and agrees to treatmen
[2023-12-03 12:37] VITALS: BP 127/77; PULSE 86; RESP 16; TEMP 36.8; O2SAT 98
== END 2023-12-03 12:47 | disposition home or self-care (01) ==
PROVIDERS: Emergency Provider Nurse Practitioner Family; PCP Family Medicine
DX: M54.6 Pain in thoracic spine (principal); K21.9 Gastro-esophageal reflux disease without esophagitis
CPT/HCPCS: 99213; G0463

== ENCOUNTER 2023-12-15 10:23 | Outpatient (CLI) | payer OTHER, SELFPAY ==
[2023-12-15 10:44] LABS: Basophils Percent Auto 0.4 % (0.2-1.2); Eosinophils Absolute Auto 0.1 K/mm3 (0-0.3); Eosinophils Percent Auto 1.5 % (0-4.4); Hematocrit 43.4 % (42.0-52.0); Hemoglobin 14.7 g/dL (14.0-18.0); Immature Granulocyte Absolute 0.02 K/mm3 (0.00-0.031); Immature Granulocyte Percent A 0.3 % (0-0.5); Lymphocytes Absolute Auto 2.48 K/mm3 (0.9-3.2); Lymphocytes Percent Auto 33.2 % (18.3-44.2); Mean Corpuscular HGB Conc 33.9 g/dl (32-36); Mean Corpuscular Hemoglobin 29.5 pg (26-34); Mean Corpuscular Volume 87.1 fl (80-100); Mean Platelet Volume 10.1 fl (7.4-10.4); Monocytes Absolute Auto 0.4 K/mm3 (0.1-0.6); Monocytes Percent Auto 5.6 % (2.6-8.5); Neutrophils Absolute Auto 4.4 K/mm3 (1.3-6.7); Platelet Count Result 222 k/mm3 (150-375); Red Blood Count 4.98 M/mm3 (4.6-6.20); White Blood Count 7.5 K/mm3 (4.5-10.0)
[2023-12-15 10:45] LABS: Add Urine Microscopic? NO; Appearance Urine Clear (Clear); Bilirubin Urine Negative (Negative); Blood Urine Negative (Negative); Color Urine Yellow (Yellow); Glucose Urine UA Negative (Negative); Ketones Urine Negative (Negative); Leukocyte Esterase Ur Negative LEU/UL (Negative); Nitrate Urine Negative (Negative); Protein Urine Negative (Negative); Specific Grav Ur 1.018 (1.001-1.035); Urobilinogen Urine 0.2 mg/dL (<2.0); pH Urine 5.5 (5.0-9.0)
[2023-12-15 10:58] LABS: Alanine Aminotransferase 69 U/L (6-50); Albumin Level 4.7 g/dL (3.5-5.1); Alkaline Phosphatase 77 U/L (38-126); Amylase 64 U/L (30-110); Anion Gap 11 mmol/L (4-12); Aspartate Amino Transferase 45 U/L (17-59); Blood Urea Nitrogen 16 mg/dL (9-20); Calcium 9.5 mg/dL (8.4-10.2); Carbon Dioxide 26 mmol/L (22-30); Chloride 103 mmol/L (98-107); Estimated Glomerular Filt Rate > 60; Glucose 98 mg/dL (65-110); Lipase 67 U/L (23-300); Potassium 4.1 mmol/L (3.4-5.0); Sodium 140 mmol/L (137-145)
== END 2023-12-15 10:24 | disposition home or self-care (01) ==
PROVIDERS: PCP Family Medicine; Visit Provider Physician Assistant
DX: R10.11 Right upper quadrant pain (principal)
CPT/HCPCS: 36415; 80053; 81003; 82150; 83690; 85025

== ENCOUNTER 2023-12-15 11:07 | Emergency (ER) | payer OTHER, SELFPAY ==
--- NOTE | ~2023-12-15 | US_ITS ---
EXAMINATION: US right upper quadrant DATE: 12/15/2023 13:20 INDICATION: Right upper quadrant abdominal pain TECHNIQUE: Multiple grayscale and Doppler ultrasound images of the abdomen were obtained. COMPARISON: None FINDINGS: The pancreatic head and body are normal in appearance. The pancreatic tail is not visualized. Liver has normal contour, with a smooth surface. There is increased parenchymal echogenicity and coarsened echotexture consistent with diffuse hepatic steatosis. No liver lesion identified. No intrahepatic b iliary duct dilation suspected. Portal venous flow was seen in the hepatopetal, normal direction and has normal Doppler waveform. The gallbladder is normal in appearance. There is no cholelithiasis. Th e common bile duct measures 5-6 mm, which is normal. Sonographic Solitario sign was reported as negative by the arts administrator. IMPRESSION: 1. Diffuse hepatic steatosis. Reviewed, dictated and finalized at location B.
[2023-12-15 11:24] VITALS: BP 147/83; PULSE 77; RESP 16; TEMP 36.6; O2SAT 98
--- NOTE | 2023-12-15 13:32 | ED.GENADULT ---
HPI - General Adult General Chief complaint: Abdominal Pain Stated complaint: abdominal pain Time Seen by Provider: 12/15/23 12:06 History of Present Illness HPI narrative: Patient is a 33-year-old male who presents ER with right upper quadrant abdominal pain. Ongoing for 3 weeks. Worse with twisting and moving. Better with rest. Unsure if it is related to eating and drinking. Had outpatient labs performed today and was sent here by his PCPs office for evaluation of his gallbladder. Denies diarrhea or constipation. No known history of gallstones. Denies acid reflux. Reports mild bloating and belching. Occurs he had taken some muscle relaxers without improvement. Related Data Home Medications Medication Instructions Recorded Confirmed lorazepam 1 mg tablet 1 mg PO DAILY PRN Anxiety 11/20/23 12/15/23 Allergies Allergy/AdvReac Type Severity Reaction Status Date / Time cefaclor Allergy Severe Swelling Verified 12/15/23 09:54 Review of Systems Review of Systems: All systems reviewed & are unremarkable except as noted in HPI and below Constitutional: Constitutional: Reports no additional constitutional complaints Cardiovascular: Cardiovascular: Reports no additional cardiovascular complaints Respiratory: Respiratory: Reports no additional respiratory complaints Gastrointestinal: Gastrointestinal: Reports abdominal pain, Reports bloating, Denies heartburn, Denies nausea and Denies vomiting Genitourinary: Genitourinary: Reports no additional male genitourinary complaints [facility] Past Medical History Medical History GERD (gastroesophageal reflux disease) SIDDHARTHA (obstructive sleep apnea) Panic disorder Surgical History Surgical History History of tonsillectomy Family History Family History Father Hypertension Family history of diabetes mellitus in first degree relative Social History Social History Social History: Smoking status: Never smoker Second hand tobacco smoke exposure: No Alcohol intake: never Substance use: former Substance use type: does not use Do You Feel Safe in your Home?: Yes Lack of Transportation: No Lack of Food: Never True Current Housing: I Have Housing Concerned About Future Housing: No Difficulty Paying Gas/Electric Bills: No Difficulty Paying for Meds: No Currently Unemployed: No Education: Don't Know Difficulty w/ Childcare or Family Care: No Living arrangements: with family Occupation/Education: occupation Gender identity (if verbalized by the patient): Male Sexual Orientation (if Verbalized by the Patient): Straight or Heterosexual Exam Narrative: GENERAL: Well-appearing, well-nourished, and in no acute distress. HEAD: Normocephalic, atraumatic. ENT: Mucous membranes moist. CHEST: Clear to auscultation. No respiratory distress. HEART: Regular rate and rhythm. Normal peripheral pulses. ABDOMEN: Soft, tender to palpation right upper quadrant with voluntary guarding, nondistended. Back: No midline or paraspinal muscle tenderness of the T/L-spine. EXTREMITIES: Normal range of motion. No edema. SKIN: Warm, dry, no rash. NEURO: Alert and oriented x3. PSYCH: Normal mood and affect. Course Course Emergency Course: Patient resting comfortably. Informed of lab results from outpatient testing which were unremarkable. Ultrasound shows fatty liver. Suspect abdominal wall discomfort is muscular in origin. Discussed treatment plan. Discharge. Vital Signs Vital signs: Vital Signs Temperature 97.9 F 12/15/23 11:24 Pulse Rate 77 12/15/23 11:24 Respiratory Rate 16 12/15/23 11:24 Blood Pressure 147/83 H 12/15/23 11:24 Pulse Oximetry 98 12/15/23 11:24 Oxygen Delivery Room Air 12/15/23 11:24 Tem
== END 2023-12-15 14:46 | disposition home or self-care (01) ==
PROVIDERS: Emergency Provider Emergency Medicine; PCP Family Medicine
DX: R10.11 Right upper quadrant pain (principal); K21.9 Gastro-esophageal reflux disease without esophagitis; G47.30 Sleep apnea, unspecified
CPT/HCPCS: 36415; 76705; 80053; 81003; 82150; 83690; 85025; 99284

== ENCOUNTER 2024-04-13 08:08 | Emergency (ER) | payer OTHER, SELFPAY ==
[2024-04-13 08:23] VITALS: BP 131/81; PULSE 65; RESP 16; TEMP 36.3; O2SAT 100
--- NOTE | 2024-04-13 08:23 | ED.URI ---
HPI - URI/Sore Throat General Chief Complaint: Upper Respiratory Infection Stated Complaint: hearing loss after virus Time Seen by Provider: 04/13/24 08:23 Source: patient, RN notes reviewed and old records reviewed Mode of arrival: ambulatory Limitations: no limitations History of Present Illness HPI Narrative: Patient reports that last week he had symptoms of fever, runny nose, body aches. He reports that fever body aches have resolved, but now he is unable to hear out of his left ear. States that this began a few days ago and is worsening daily. He reports continued runny nose. He has been taking Flonase every day to try to treat his symptoms. He denies any injury or trauma. He denies any pain. He voices no other concerns or complaints at this time. Related Data Home Medications ?Medication ?Instructions ?Recorded ?Confirmed ?Last Taken ?Type lorazepam 1 mg tablet 1 mg PO DAILY PRN Anxiety 11/20/23 04/13/24 Unknown History Allergies Allergy/AdvReac Type Severity Reaction Status Date / Time cefaclor Allergy Severe Swelling Verified 04/13/24 08:22 Review of Systems Review of Systems: All systems reviewed & are unremarkable except as noted in HPI and below Constitutional: Constitutional: Reports no additional constitutional complaints ENT: Reports system reviewed and no additional complaints, except as documented and Reports hearing loss Cardiovascular: Cardiovascular: Reports no additional cardiovascular complaints Respiratory: Respiratory: Reports no additional respiratory complaints Gastrointestinal: Gastrointestinal: Reports no additional gastrointestinal complaints [facility] Past Medical History Medical History SIDDHARTHA (obstructive sleep apnea) GERD (gastroesophageal reflux disease) Panic disorder Surgical History Surgical History History of tonsillectomy Family History Family History Father Hypertension Family history of diabetes mellitus in first degree relative Social History Social History Social History: Smoking status: Never smoker Second hand tobacco smoke exposure: No Alcohol intake: never Substance use: former Substance use type: does not use Do You Feel Safe in your Home?: Yes Lack of Transportation: No Lack of Food: Never True Current Housing: I Have Housing Concerned About Future Housing: No Difficulty Paying Gas/Electric Bills: No Difficulty Paying for Meds: No Currently Unemployed: No Education: Don't Know Difficulty w/ Childcare or Family Care: No Living arrangements: with family Occupation/Education: occupation Gender identity (if verbalized by the patient): Male Sexual Orientation (if Verbalized by the Patient): Straight or Heterosexual Comments At the time of my signature, I reviewed and agree with the nursing past medical, surgical, social, and family history. There is no relevant family history pertinent to the patient complaint. Exam Const: General: cooperative, no acute distress, alert and awake Orientation/consciousness: oriented to person, oriented to place and oriented to time HENMT: Head: normal to inspection Ears: TM normal on the right and TM abnormal bulging on the left, dull on the left, erythematous on the left and with loss of landmarks on the left Resp: Effort & Inspection: normal respiratory effort and able to speak in complete sentences Auscultation: clear to auscultation bilaterally, no crackles, no rales, no rhonchi and no wheezes Cardio: Palpation: normal PMI Rate: regular rate Rhythm: regular rhythm Heart sounds: S1 normal heart sound present and S2 normal heart sound present Neuro: General: oriented to person, oriented to place and oriented to time Cranial nerves: Yes CN's II-XII intact bilaterally Psych: Appearance: grossly normal Thought process: Normal thought process present Insight: Good insight present (Psych) Judgement: Good judgement present (Psych) Course Course Level of Care: Express Care Visit Vital Signs Vital signs: Reviewed MDM - URI/Sore Throat MDM Narrative Medical decision making narrative: History and exam consistent with otitis media. Start prednisone, azithromycin as patient is penicillin allergic. He is nontoxic appearing, stable for discharge home on p.o. antibiotic therapy. Discharge instructions reviewed with patient, as well as provided in writing per nursing staff. The instructions also include specific and strict return/GO TO THE ER as well as f/u information. All questions have been answered, and the patient deny any further questions with discharge and discharge plan. Some parts of this dictation were generated by voice recognition software and may contain typographical and/or grammatical inaccuracies. Differential Diagnosis Differential diagnosis: Likely upper respiratory infection, otitis media, sinusitis and viral infection Medical Records Attestation: I reviewed the patient's medical records. Discharge Plan Discharge Clinical Impression: Otitis media Qualifiers: Otitis media type: suppurative Chronicity: acute Laterality: left Recurrence: not specified as recurrent Spontaneous tympanic membrane rupture: without spontaneous rupture Qualified Code(s): H66.002 - Acute suppurative otitis media without spontaneous rupture of ear drum, left ear Patient Disposition: Home, Self-Care Condition: Stable Instructions: Antibiotic Form, Ear Infection (ED) Patient Language: Luxembourgish Prescriptions: New prednisone 50 mg tablet 50 mg PO DAILY Qty: 5 0RF azithromycin 250 mg tablet See Rx Instructions PO .COMPLEX Qty: 6 0RF Rx Instructions: For 250 mg dose pack: take 500 mg today (day 1), then 250 mg for 4 days (days 2-5) No Action lorazepam 1 mg tablet 1 mg PO DAILY PRN (Reason: Anxiety) buspirone 10 mg tablet 10 mg PO TID PRN (Reason: anxiety) Qty: 90 0RF paroxetine HCl 30 mg tablet 30 mg PO DAILY Qty: 90 0RF Follow-up/Referrals: Jose E Bolivar MD [Primary Care Provider] - 2 Weeks Time of Disposition: 08:31
== END 2024-04-13 08:36 | disposition home or self-care (01) ==
PROVIDERS: Emergency Provider Nurse Practitioner Family; PCP Family Medicine
DX: H66.002 Acute suppurative otitis media without spontaneous rupture of ear drum, left ear (principal); G47.33 Obstructive sleep apnea (adult) (pediatric); K21.9 Gastro-esophageal reflux disease without esophagitis; F41.0 Panic disorder [episodic paroxysmal anxiety]
CPT/HCPCS: 99213; G0463

== ENCOUNTER 2024-11-18 03:16 | Emergency (ER) | payer OTHER, SELFPAY ==
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
--- OUTSIDE RECORDS SUMMARY | 2024-11-18 03:17 | XMS_ITS | Clinical Summary ---
Author Organization [facility] Address [address] [place] [address] Care Team Providers Care Brick Paving Checker Name Role Phone Jose E Bolivar MD Primary Care Provider [phone] Allergies Active Allergy Reactions Criticality Noted Date Comments Cefaclor Unknown 04/09/2020 Medications citalopram 40 MG tablet Take 40 mg by mouth daily. 12/23/2019 Active busPIRone 10 MG tablet Take 10 mg by mouth daily. 03/26/2020 Active Family History Medical History Relation Comments Heart Disease Father Relation Status Comments Father Social History Tobacco Use Types Packs/Day Years Used Date Smoking Tobacco: Never Smokeless Tobacco: Never Alcohol Use Standard Drinks/Week Comments Never 0 (1 standard drink = 0.6 oz pur e alcohol) AUDIT-C Answer Date Recorded Q1: How often do you have a drink containing alc ohol? Never 04/09/2020 Average Number of Drinks Not on file 021 Frequency of Binge Drinking Not on file 06/2020 Sex and Gender Information Value Date Recorded Sex Assigned at Not on file Legal Sex Male 6:09 PM CDT Gender Identity Not on file Sexual Orientation Not on file Last Filed Vital Signs Vital Sign Reading Time Taken Comments Blood Pressure 111/73 04/09/2020 2:01 PM PERSONAL BANKING REPRESENTATIVE Pulse 97 04/09/2020 2:01 PM PERSONAL BANKING REPRESENTATIVE Temperature 36.3 C (97.4 F) 04/09/2020 1:20 PM PERSONAL BANKING REPRESENTATIVE Respiratory Rate 18 04/09/2020 2:01 PM PERSONAL BANKING REPRESENTATIVE Oxygen Saturation 99% 04/09/2020 1:20 PM PERSONAL BANKING REPRESENTATIVE Inhaled Oxygen Concentration - - Weight 127 kg (280 lb) 04/09/2020 1:20 PM PERSONAL BANKING REPRESENTATIVE Height 182.9 cm (6') 04/09/2020 1:20 PM PERSONAL BANKING REPRESENTATIVE Body Mass Index 37.97 04/09/2020 1:20 PM PERSONAL BANKING REPRESENTATIVE Plan of Treatment Health Maintenance Due Date Last Done Comments Annual Physical 1993 Hepatitis C 2008 Hepatitis B Vaccines (1 of 3 - 19+ 3-dose series) 2009 HPV Vaccines (1 - 3-dose SCD M series) 2017 COVID-19 Vaccine (1 - 2023-2 5 season) 2023 DTaP, Tdap and Td Vaccines ( 2 - Tdap) 03/07/2027 03/07/2017 Meningococcal B Vaccine Aged Out No l onger eligible based on patient's age to complete this topic Meningococcal Vaccine Aged Out No bright sherri eligible based on patient's age to complete this topic Pneumococcal Vaccine: Pediat rics (0 to 5 Years) and At-Risk Patients (6 to 49 Years) Aged Out No longer eligi ble based on patient's age to complete this topic RSV Immunizations Under 20 Months Aged Out No longer eligible based on patient's age to complete this topic Insurance [facility] Care Teams Brick Paving Checker Relationship Specialty Start Date End Date Jose E Bolivar MD [address] [facility] [address] [place] [address] PCP - General FAMILY PRACTICE 04/09/20
--- OUTSIDE RECORDS SUMMARY | 2024-11-18 03:18 | XMS_ITS | Patient Health Record ---
Author Organization [facility] Address [address] [facility] [address] [place] [address] Care Team Providers Care Coil Winder Strap Name Role Phone Jose E Bolivar MD Primary Care Provider Unavaila Sophie Watts Unavailable [phone] Allergies Allergen (clinical drug ingredient) Drug/Non Drug Allergy documented on EMR Reaction Allergy Type Onset Date Status cefaclor CECLOR (uncoded) Unknown Allergy Act buster Results Component Value Reference Range Notes DRUG MONITOR, MARIJUANA META B, QN, URINE ([id number]) Reviewed date:12/17/2023 07:39:41 AM Interpretation: Performing Lab:[facility], [facility] [address], [place] SystemsDjgzHW[address] Jose Toro Notes/Report: FASTING: NO Marijuana Metabolite NEGATIVE <5 ng/mL Marijuana Comments See LDT N otes DRUG MONITOR, OPIATES EXPAND ED, QN, URINE ([id number]) Reviewed date:12/17/2023 07:39:41 AM Interpretation: Performing Lab:[facility], [facility] [address], [employer] [id number] Jose Toro Notes/Report: FASTING: NO Codeine NEGATIVE <50 ng/mL Hydrocodone NEGATIVE <50 ng/mL Hydromorphone NEGATIVE <50 ng/mL Morphine NEGATIVE <50 ng/mL Norhydrocodone NEGATIVE <50 ng/mL Opiates Comments See LDT Not es Noroxycodone NEGATIVE <50 ng/mL Oxycodone NEGATIVE <50 ng/mL Oxymorphone NEGATIVE <50 ng/mL Oxycodone Comments See LDT N otes DRUG MONITOR, BUP AND NALOXO NE,QN,URINE ([id number]) Reviewed date:12/17/2023 07:39:41 AM Interpretation: Performing Lab:[facility] [address], [place] TjpzJI[address] Jose Toro Notes/Report: FASTING: NO Buprenorphine NEGATIVE <2 ng/mL Norbuprenorphine NEGATIVE <2 ng/mL Naloxone NEGATIVE <2 ng/mL Buprenorphine Comments See L DT Notes DRUG MONITOR,METHYLPHENID ME TAB, QN, URINE ([id number]) Reviewed date:12/17/2023 07:39:41 AM Interpretation: Performing Lab:[facility] [address], [place] SystemsHzfaEG[address] Jose Toro, Director - [address] [facility] Notes/Report: FASTING: NO Ritalinic Acid NEGATIVE <100 ng/mL Ritalinic Acid Comments See LDT Notes Notes and Comments This drug testing is for medical treatment only. Analysis was performed as non-forensic testing and these results should be used only by healthcare providers to render diagnosis or treatment, or to monitor progress of medical conditions. LDT Notes: Confirmation tests were developed and their analytical performance characteristics have been determined by [facility] [employer] It has not been cleared or approved by the FDA. This assay has been validated pursuant to the CLIA regulations and is used for clinical purposes. Healthcare Providers needing Interpretation assistance, please contact us at [phone] ( ) M-F, 8am to 10pm EST DRUG MONITOR, COCAINE METAB, QN, URINE ([id number]) Reviewed date:12/17/2023 07:39:41 AM Interpretation: Performing Lab:[facility] [address], [place] SnncKB[address] Jose Toro Notes/Report: FASTING: NO Benzoylecgonine NEGATIVE <100 ng/mL Cocaine Comments See LDT Not es DRUG MONITOR, BENZO, QN, URI NE ([id number]) Reviewed date:12/17/2023 07:39:41 AM Interpretation: Performing Lab:[facility] [address], [place] OxiuOX[address] Jose Toro Notes/Report: FASTING: NO Alphahydroxyalprazolam NEGATIVE <25 ng/mL Alphahydroxymidazolam NEGATIVE <50 ng/mL Alphahydroxytriazolam NEGATIVE <50 ng/mL Aminoclonazepam NEGATIVE <25 ng/mL Hydroxyethylflurazepam NEGATIVE <50 ng/mL Lorazepam NEGATIVE <50 ng/mL Nordiazepam NEGATIVE <50 ng/mL Oxazepam NEGATIVE <50 ng/mL Temazepam NEGATIVE <50 ng/mL Benzodiazepines Comments See LDT Notes DRUG MONITOR,AMPHETAMINE, QN , URINE ([id number]) Reviewed date:12/17/2023 07:39:41 AM Interpretation: Performing Lab:[facility], [facility] [address] [facility] HospitalSepvEJ[address] Jose Toro Notes/Report: FASTING: NO Amphetamine NEGATIVE <250 ng/mL Methamphetamine NEGATIVE <250 ng/mL Amphetamines Comments See LD T Notes Reason For Referral No Information Medications Medication SIG (Take, Route, Fr equency, Duration) Notes Start Date End Date Status PARoxetine HCl 40 MG 1 tablet in the mor terry Orally Once a day; Duration: 90 days Ac tive LORazepam 1 MG 1 tablet Orally Once a day; Duration: 30 days As needed 11/09/2024 Active busPIRone HCl 10 MG 1 tablet Orally Twic e a day; Duration: 90 days Active Social History Tobacco Use: Social History Observation Description Date Details (start date - stop date) Never Smoker NA - NA Sex Assigned At : Social History Observation Description Sex Assigned At Male Tobacco Control (Standard) Question Answer Notes Tobacco use: Nonsmoker AUDIT-C (Standard) Question Answer Notes Did you have a drink containing alcohol in the p ast year? No Problems Problem Type SNOMED Code ICD Code Onset Dates Problem Status W/U Status Risk Notes Problem LIYA (generalized anxiety disorder) (F41.1) Active confirmed Vital Signs Heart Rate 78 /min 11/19/2023 Height-cm 185.42 cm 11/19/2023 Blood pressure diastolic 83 mm Hg 11/19/2023 Weight-kg 108.86 kg 11/19/2023 Height 73 in 11/19/2023 Blood pressure systolic 132 mm Hg 11/19/2023 Weight 240 lbs 11/19/2023 BMI 31.66 kg/m2 11/19/2023 Encounters Encounter Location Date Provider Diagnosis [facility] [address] [facility] [address] [facility] [address] [place] [address] 11/19/2023 Sophie Martell LIYA (generalized anxiety disorder) F41.[address] [facility] [address] [place] [address] 05/17/2024 Sophie Martell LIYA (generalized anxiety disorder) F41.[address] [facility] [address] [place] [address] 11/09/2024 Sophie Martell LIYA (generalized anxiety disorder) F41.1 Assessments Encounter Date Diagnosis (ICD Code) Assessment Notes Treatment Notes Treatment Clinical Notes Section Notes 11/19/2023 LIYA (generalized anxiety disorder) (ICD-10 - F41.1) 05/17/2024 LIYA (generalized anxiety disorder) (ICD-10 - F41.1) SSRI/SNRI side effects discussed including but not limited to, gastric upset, nausea, vomiting, diarrhea and/or constipation, weight changes, sexual side effects including loss of libido, increased suicidal thoughts/behavior s in children and young adults, and serotonin syndrome. 11/09/2024 LIYA (generalized anxiety disorder) (ICD-10 - F41.1) SSRI/SNRI side effects discussed including but not limited to, gastric upset, nausea, vomiting, diarrhea and/or constipation, weight changes, sexual side effects including loss of libido, increased suicidal thoughts/behavior s in children and young adults, and serotonin syndrome. 11/19/2023 Other Stable, continue current medications per Dr Sung. -Paxil 30mg qd -Buspar 10mg BID -Lorazepam 1mg qd PRN Patient educated on all medications including potential benefits, side effects, risks. Educated on proper dosing schedule and importance of compliance. [place] report checked and consistent with prescription history, no controlled substance prescriptions from other providers. Send UTD out. 05/17/2024 Other Stable, continue current medications, refills sent in. Patient educated on all medications including potential benefits, side effects, risks. Educated on proper dosing schedule and importance of compliance. [place] report checked and consistent with prescription history, no controlled substance prescriptions from other providers. -Assessment and treatment plan reviewed with patient. -Compliance with treatment plan importance discussed. -Discussed the risks/benefits of this medication -Discussed medication side effects. -Contact office if symptoms worsen. -Discussed that it can take up to 6-8 weeks to see full therapeutic effects of psychotropic medications. -Crisis prevention hotline 988. 11/09/2024 Other Increase Paxil to 40mg daily for anxiety, panic attacks Patient educated on all medications including potential benefits, side effects, risks. Educated on proper dosing schedule and importance of compliance. [place] report checked and consistent with prescription history, no controlled substance prescriptions from other providers. Last lorazepam fill: 05/17/2024 -Assessment and treatment plan reviewed with patient. -Compliance with treatment plan importance discussed. -Discussed the risks/benefits of this medication -Discussed medication side effects. -Contact office if symptoms worsen. -Discussed that it can take up to 6-8 weeks to see full therapeutic effects of psychotropic medications. -Crisis prevention hotline 988. Plan Of Treatment Pending Test Test Name Order Date UDT 11/19/2023 Next Appt Details Provider Name:Sophie maria, 06/21/2025 08:00:00 AM, [address], [facility] [address], [place], [address], Insurance Providers Payer Name Payer Address Payer Phone Subscriber Number Group Number Insured Name Patient Relationship to Insured Coverage Start Date Coverage End Date [facility] [address] [place] [address] [id number] ALESSANDRO MONTANA Self - patient is the insured Medical (General) History Medical History History ICD Code Past Psychiatric History: Anxiety Disord er,Panic Disorder abdominal aortic aneurysm: No atrial fibrillation: No chronic fatigue syndrome: No essential tremor: No hyperlipidemia: No hypertension: No Parkinson's disease: No restless leg syndrome: Yes stroke: No subdural hematoma: No type 1 diabetes mellitus: No type 2 diabetes mellitus: No vitamin B12 deficiency: No vitamin D deficiency: No
--- OUTSIDE RECORDS SUMMARY | 2024-11-18 03:18 | XMS_ITS | Patient Health Record ---
Author Organization [facility] Address [address] [place] [address] Care Team Providers Care Electro Mechanical Assembler Name Role Phone Emelyn Harris Primary Care Provider Reason For Referral No Information Medications Medication SIG (Take, Route, Fr equency, Duration) Notes Start Date End Date Status Cymbalta 60 MG 1 capsule Orally Onc e a day; Duration: 30 day(s) Active Ativan 0.5 MG 1 tablet at bedtime as needed Orally Once a day Active Problems Problem Type SNOMED Code ICD Code Onset Dates Problem Status W/U Status Risk Notes Problem LIYA (generalized anxiety disorder) (F41.1) Active confirmed Plan Of Treatment No Information Insurance Providers Payer Name Payer Address Payer Phone Subscriber Number Group Number Insured Name Patient Relationship to Insured Coverage Start Date Coverage End Date [facility] [address] [place] [address] [id number] Carlos Gilman Self - patient is the insured 1 Medical (General) History Surgical History Surgery Date(Month/Year)
[2024-11-18 03:19] VITALS: BP 147/83; PULSE 64; RESP 18; TEMP 36.8; O2SAT 99
--- OUTSIDE RECORDS SUMMARY | 2024-11-18 04:59 | XMS_ITS | Clinical Summary ---
Author Organization [facility] Address [address] [place] [address] Care Team Providers Care Insole Stiffener Name Role Phone Jose E Bolivar MD Primary Care Provider [phone] Allergies Active Allergy Reactions Criticality Noted Date [...] Comments Blood Pressure 111/73 04/09/2020 2:01 PM LABOR RELATIONS WORKER Pulse 97 04/09/2020 2:01 PM LABOR RELATIONS WORKER Temperature 36.3 C (97.4 F) 04/09/2020 1:20 PM LABOR RELATIONS WORKER Respiratory Rate 18 04/09/2020 2:01 PM LABOR RELATIONS WORKER Oxygen Saturation 99% 04/09/2020 1:20 PM LABOR RELATIONS WORKER Inhaled Oxygen Concentration - - Weight 127 kg (280 lb) 04/09/2020 1:20 PM LABOR RELATIONS WORKER Height 182.9 cm (6') 04/09/2020 1:20 PM LABOR RELATIONS WORKER Body Mass Index 37.97 04/09/2020 1:20 PM LABOR RELATIONS WORKER Plan of Treatment Health Maintenance Due Date [...] topic Meningococcal Vaccine Aged Out No bright sehrri eligible based on patient's age to complete this topic Pneumococcal Vaccine: Pediat rics (0 to 5 Years) and At-Risk Patients (6 to 49 Years) Aged Out No longer eligi ble based on patient's age to complete this topic RSV Immunizations Under 20 Months Aged Out No longer eligible based on patient's age to complete this topic Insurance [facility] Care Teams Insole Stiffener Relationship Specialty Start Date End Date Jose E Bolivar MD [address] [facility] [address] [place] [address] PCP - General FAMILY PRACTICE 04/09/20
--- OUTSIDE RECORDS SUMMARY | 2024-11-18 04:59 | XMS_ITS | Clinical Summary ---
Author Organization [facility] Address [address] [place] [address] Phone Care Team Providers Care Demonstrator Sewing Techniques Name Role Phone Jose E Bolivar MD Primary Care Provider [phone] Allergies Active Allergy Reactions Criticality Noted Date [...] series) 10/06 INFLUENZA VACCINE (#1) 2024 Insurance [facility] BLUE ACCESS/TRUE BLUE PPO RX [employer] RX Member Subscriber Plan / Payer (Ef fective 2020-Present) Name:Carlos Mata Relation to Subscriber:Spouse Name:Carlos Mata Subscriber ID:Not on file Payer ID:Not on file Group ID:[id number] Type:RX Commercial Address: [address] Care Teams Demonstrator Sewing Techniques Relationship Specialty Start Date End Date Jose E Bolivar MD [address] [address] PCP - General Family Practice 10/10/20
[2024-11-18] MEDS: dexAMETHasone SOD PHOS INJ 10 MG/ML 1 ML VIAL IM (05:08)
[2024-11-18] MEDS: KETOROLAC (*BKC) 60 MG/2 ML VIAL 30 MG IM (05:08)
--- NOTE | 2024-11-18 05:15 | ED.BACK ---
HPI - Back Pain/Injury General Chief Complaint: Back Pain/Injury Stated Complaint: back pain Time Seen by Provider: 11/18/24 04:44 History of Present Illness HPI Narrative: 34-year-old otherwise healthy male aside from some obesity presenting to the emergency department with left-sided back pain. He states he feels like he pulled a muscle approximately 3 days ago. Denies any traumatic injuries however. No other symptoms such as chest pain, shortness a breath, dysuria, hematuria, difficulty difficulty with bowel movements or difficulty ambulating. No sensory deficits or strength/sensation deficits. Was otherwise in his normal state of health. Has tried some conservative therapies including Tylenol, ibuprofen and ice pack/heat pack without any significant relief. States is worse when he lies on it a prefer standing and walking. Related Data Home Medications ?Medication ?Instructions ?Recorded ?Confirmed ?Last Taken ?Type lorazepam 1 mg tablet 1 mg PO DAILY PRN Anxiety 11/20/23 04/13/24 Unknown History Allergies Allergy/AdvReac Type Severity Reaction Status Date / Time cefaclor Allergy Severe Swelling Verified 11/18/24 03:21 Review of Systems Review of Systems: As reviewed above in HPI [facility] Past Medical History Medical History SIDDHARTHA (obstructive sleep apnea) GERD (gastroesophageal reflux disease) Panic disorder Surgical History Surgical History History of tonsillectomy Family History Family History Father Hypertension Family history of diabetes mellitus in first degree relative Social History Social History Social History: Smoking status: Never smoker Second hand tobacco smoke exposure: No Alcohol intake: never Substance use: former Substance use type: does not use Do You Feel Safe in your Home?: Yes Lack of Transportation: No Lack of Food: Never True Current Housing: I Have Housing Concerned About Future Housing: No Difficulty Paying Gas/Electric Bills: No Difficulty Paying for Meds: No Currently Unemployed: No Education: Don't Know Difficulty w/ Childcare or Family Care: No Living arrangements: with family Occupation/Education: occupation Gender identity (if verbalized by the patient): Male Sexual Orientation (if Verbalized by the Patient): Straight or Heterosexual Exam Narrative: GENERAL: [Well-appearing, well-nourished, and in no acute distress.] HEAD: [Normocephalic, atraumatic.] EYES: [PERRLA and EOMI.] ENT: Nares clear, no rhinorrhea or epistaxis. Mucous membranes moist. NECK: Supple. CHEST: [Clear to auscultation. No respiratory distress.] HEART: [Regular rate and rhythm]. No murmur heard. [Normal peripheral pulses.] ABDOMEN: [Soft, nondistended], [nontender], [No rigidity or guarding] EXTREMITIES: Normal range of motion. [No edema.] Reproducible tenderness to palpation in the left-sided mid back without any midline tenderness or step-offs. No rashes. Ambulates without difficulty in the examination room. SKIN: Warm, dry, no rash. NEURO: [No focal deficits]. Alert and oriented [x3.] PSYCH: [Normal mood and affect.] Course Vital Signs Vital signs: Vital Signs Temperature 36.8 C 11/18/24 03:19 Pulse Rate 64 11/18/24 03:19 Respiratory Rate 18 11/18/24 03:19 Blood Pressure 147/83 H 11/18/24 03:19 Pulse Oximetry 99 11/18/24 03:19 Oxygen Delivery Room Air 11/18/24 03:19 Temperature 36.8 C 11/18/24 03:19 Pulse Rate 64 11/18/24 03:19 Respiratory Rate 18 11/18/24 03:19 Blood Pressure 147/83 H 11/18/24 03:19 Pulse Oximetry 99 11/18/24 03:19 Oxygen Delivery Room Air 11/18/24 03:19 MDM - Back Pain/Injury MDM Narrative Medical decision making narrative: 34-year-old otherwise healthy male aside from some obesity presenting to the emergency department with left-sided back pain. He states he feels like he pulled a muscle approximately 3 days ago. Denies any traumatic injuries however. No other symptoms such as chest pain, shortness a breath, dysuria, hematuria, difficulty difficulty with bowel movements or difficulty ambulating. No sensory deficits or strength/sensation deficits. Was otherwise in his normal state of health. Has tried some conservative therapies including Tylenol, ibuprofen and ice pack/heat pack without any significant relief. States is worse when he lies on it a prefer standing and walking. Patient has reproducible musculoskeletal pain on palpation in the area of his pain left-sided low back paraspinal muscle region. Symptoms consistent with muscle spasm or pulled muscle. No red flag signs on exam or history. He was given Decadron and Toradol intramuscularly and discharged home with oral prednisone for several days as well as lidocaine patches and return precautions. Medical Records Attestation: I reviewed the patient's medical records. Discharge Plan Discharge Clinical Impression: Musculoskeletal back pain Patient Disposition: Home Condition: Stable Instructions: Antibiotic Form, Acute Low Back Pain (ED), Lower Back Exercises (ED) Additional Instructions: Return to the ER if you have increased pain in your back, you develop lower extremity weakness/numbness/paralysis, you have numbness or tingling in your private parts, or you are unable to control your ability to urinate/stool. We will send you home with some lidocaine patches and steroids for several days. Continue taking your anti-inflammatories and pain control medications at home. Patient Language: Nauruan Prescriptions: New prednisone 50 mg tablet 50 mg PO DAILY 4 Days Qty: 4 0RF lidocaine 5 % adhesive patch,medicated 1 patch topical DAILY Qty: 15 0RF Rx Instructions: leave on most painful area for up to 12 hrs No Action prednisone 50 mg tablet 50 mg PO DAILY Qty: 5 0RF azithromycin 250 mg tablet See Rx Instructions PO .COMPLEX Qty: 6 0RF Rx Instructions: For 250 mg dose pack: take 500 mg today (day 1), then 250 mg for 4 days (days 2-5) lorazepam 1 mg tablet 1 mg PO DAILY PRN (Reason: Anxiety) buspirone 10 mg tablet 10 mg PO TID PRN (Reason: anxiety) Qty: 90 0RF paroxetine HCl 30 mg tablet 30 mg PO DAILY Qty: 90 0RF Follow-up/Referrals: Jose E Bolivar MD [Primary Care Provider] - Time of Disposition: 05:18
== END 2024-11-18 05:40 | disposition home or self-care (01) ==
PROVIDERS: Emergency Provider Student in an Organized Health Care Education/Training Program; PCP Family Medicine
DX: M54.50 Low back pain, unspecified (principal); G47.33 Obstructive sleep apnea (adult) (pediatric); K21.9 Gastro-esophageal reflux disease without esophagitis
CPT/HCPCS: 96372; 99284; J1100; J1885

== ENCOUNTER 2024-11-19 16:17 | Outpatient (CLI) | payer OTHER, SELFPAY ==
--- NOTE | ~2024-11-19 | XR_ITS ---
Exam: Abdomen 1V HISTORY: R10.9 - Unspecified abdominal pain COMPARISON: None TECHNIQUE: Supine images of the abdomen Examination is markedly limited secondary to the entirety of the abdomen not being included on the vasquez bmitted images. FINDINGS: Fecal stasis within the colon. No air within the rectum. No pathologic calcifications are seen on the submitted images. Lung bases are not included. IMPRESSION: Limited examination of the abdomen without the entirety of the abdominal structures demonstrates feca l stasis within the colon and no air in the rectum. Reviewed, dictated and finalized at location A. IMPRESSION: Limited examination of the abdomen without the entirety of the abdominal struct ures demonstrates fecal stasis within the colon and no air in the rectum.
== END 2024-11-19 16:18 | disposition home or self-care (01) ==
LOC: MICIMG 16:18
PROVIDERS: PCP Family Medicine
DX: K56.41 Fecal impaction (principal)
CPT/HCPCS: 74018

== ENCOUNTER 2024-11-21 09:48 | Emergency (ER) | payer OTHER, SELFPAY ==
--- NOTE | ~2024-11-21 | CT_ITS ---
Non-contrast CT scan of the Abdomen and Pelvis Clinical indication: Left flank pain Technique: 2.5 mm axial scans were obtained through the abdomen and pelvis without intravenous or or al contrast. Dose reduction technique was used on this scan by utilizing automated exposure control a nd iterative reconstruction technique. The dose-length product (DLP) was 999.76 mGy-cm. Findings: Images through the lung bases reveal no abnormalities. There is no evidence of renal or ureteral calculi. The kidneys and the ureters are nondilated. There is diffuse hepatic steatosis. The spleen, pancreas, gallbladder, and adrenals appear normal. T here is no aortic aneurysm. There is no evidence of bowel obstruction. There is minimal haziness in the central mesentery with sm all shotty lymph nodes. Images through the pelvis were performed. There is no evidence of ascites or lymphadenopathy. Urinary bladder unremarkable. No pelvic mass. 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 Impression: Diffuse hepatic steatosis. 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 Reviewed, dictated and finalized at [facility]. Impression: Diffuse hepatic steatosis. 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
--- OUTSIDE RECORDS SUMMARY | 2024-11-21 09:50 | XMS_ITS | Patient Health Record ---
Author Organization [facility] Address [address] [facility] [address] [place] [address] Care Team Providers Care Emergency Department Manager Name Role Phone Jose E Bolivar MD Primary Care Provider Unavaila Sophie Watts Unavailable [phone] Allergies Allergen (clinical drug ingredient) Drug/Non Drug Allergy documented on EMR Reaction Allergy Type Onset Date Status cefaclor CECLOR (uncoded) Unknown Allergy Act buster Reason For Referral No Information Medications Medication [...] LIYA (generalized anxiety disorder) (F41.1) Active confirmed Encounters Encounter Location Date Provider Diagnosis [facility] [employer] [facility] [address] [facility] [address] [place] [address] 05/17/2024 Sophie Martell LIYA (generalized anxiety disorder) F41.1 [facility] [employer] [address] [place] [address] 11/09/2024 Sophie Martell LIYA (generalized anxiety disorder) F41.1 Assessments Encounter Date Diagnosis (ICD Code) Assessment Notes Treatment Notes Treatment Clinical Notes Section Notes 11/09/2024 LIYA (generalized anxiety disorder) (ICD-10 - F41.1) SSRI/SNRI side effects discussed including but not limited to, gastric upset, nausea, vomiting, diarrhea and/or constipation, weight changes, sexual side effects including loss of libido, increased suicidal thoughts/behavior s in children and young adults, and serotonin syndrome. 05/17/2024 LIYA (generalized anxiety disorder) (ICD-10 - F41.1) SSRI/SNRI side effects discussed including but not limited to, gastric upset, nausea, vomiting, diarrhea and/or constipation, weight changes, sexual side effects including loss of libido, increased suicidal thoughts/behavior s in children and young adults, and serotonin syndrome. 05/17/2024 Other Stable, continue current medications, refills [...] UDT 11/19/2023 Next Appt Details Provider Name:Sophie Pozo crow, 06/21/2025 08:00:00 AM, [address], [facility] [address], [place], [address], Insurance Providers Payer Name Payer Address Payer Phone Subscriber Number Group Number Insured Name Patient Relationship to Insured Coverage Start Date Coverage End Date [facility] [address] [place] [address] [id number] ALESSANDRO MONTANA Self - patient is the [...]
--- OUTSIDE RECORDS SUMMARY | 2024-11-21 09:50 | XMS_ITS | Patient Health Record ---
Author Organization [facility] Address [address] [place] [address] Care Team Providers Care Coater Name Role Phone Emelyn Harris Primary Care [...] Insured Coverage Start Date Coverage End Date [facility] [address] [place] [address] [id number] Carlos Gilman Self - patient is the insured 1 Medical (General) History Surgical History Surgery Date(Month/Year)
--- OUTSIDE RECORDS SUMMARY | 2024-11-21 09:50 | XMS_ITS | Clinical Summary ---
Author Organization [facility] Address [address] [place] [address] Phone Care Team Providers Care Chief Warden Name Role Phone Jose E Bolivar MD Primary Care Provider [phone] Allergies Active Allergy Reactions Criticality Noted Date [...] series) 10/06 INFLUENZA VACCINE (#1) 2024 Insurance [facility] BLUE ACCESS/TRUE BLUE PPO RX OPT[employer] RX Member Subscriber Plan / Payer (Ef fective 2020-Present) Name:Carlos Mata Relation to Subscriber:Spouse Name:Carlos Mata Subscriber ID:Not on file Payer ID:Not on file Group ID:[id number] Type:RX Commercial Address: [address] Care Teams Chief Warden Relationship Specialty Start Date End Date Jose E Bolivar MD [address] [address] PCP - General Family Practice 10/10/20
--- OUTSIDE RECORDS SUMMARY | 2024-11-21 09:50 | XMS_ITS | Continuity of Care Document ---
Author Organization [facility] Address [address] [facility] [address] [place] [address] Phone Care Team Providers Care Enrollment Management Coordinator Name Role Phone Brian Duque MD Unavailable Unavailable Advance Directives Directive Yes / No Effective Date File Name No Information Encounters Encounter Description Practice Location Reason(s) For Visit Diagnoses Date Provider Providers Copied on Encounter [facility], [address], [place], [place], [id number], [place] tel:[phone] [facility] No Information [address] [facility] [place], [place], [id number], [place]. tel:[phone] Family History Family Member Type Diagnosis Age At Onset No Information Payers Payer name Insurance type Covered republican ID Authoriza tion(s) No Information Social History Type Description Quantity Date Captured Comments Sex Male Smoking Status No Information Chief Complaint And Reason For Visit No Information Reason For Referral Reason For Referral No Information History Of Present Illness Encounter Date Complaint History Of Prese nt Illness No Information Functional Status Date Functional Assessmen t No Information Instructions Date Instruction Additional Infor mation No Information Assessments Type Assessment Date No Information Patient Care Teams Name Effective Dates (start - stop) Status Members No Information
--- OUTSIDE RECORDS SUMMARY | 2024-11-21 09:50 | XMS_ITS | Clinical Summary ---
Author Organization [facility] Address [address] [place] [address] Care Team Providers Care Workforce Management Consultant Name Role Phone Jose E Bolivar MD Primary Care Provider [phone] Allergies Active Allergy Reactions Criticality Noted Date [...] Comments Blood Pressure 111/73 04/09/2020 2:01 PM [employer] [employer]SE UPHOLSTERER Pulse 97 04/09/2020 2:01 PM [employer] HEARSE UPHOLSTERER Temperature 36.3 C (97.4 F) 04/09/2020 1:20 PM [employer] HEARSE UPHOLSTERER Respiratory Rate 18 04/09/2020 2:01 PM [employer] HEARSE UPHOLSTERER Oxygen Saturation 99% 04/09/2020 1:20 PM [employer] HEARSE UPHOLSTERER Inhaled Oxygen Concentration - - Weight 127 kg (280 lb) 04/09/2020 1:20 PM [employer] HEARSE UPHOLSTERER Height 182.9 cm (6') 04/09/2020 1:20 PM [employer]INE [employer] HEARSE UPHOLSTERER Body Mass Index 37.97 04/09/2020 1:20 PM [employer]INE [employer] HEARSE UPHOLSTERER Plan of Treatment Health Maintenance Due Date [...] patient's age to complete this topic Insurance [facility] Care Teams Workforce Management Consultant Relationship Specialty Start Date End Date Jose E Bolivar MD [address] [facility] [address] [place] [address] PCP - General FAMILY PRACTICE 04/09/20
[2024-11-21 10:05] VITALS: BP 157/85; PULSE 66; RESP 16; TEMP 36.6; O2SAT 98
--- OUTSIDE RECORDS SUMMARY | 2024-11-21 10:27 | XMS_ITS | Clinical Summary ---
Author Organization [facility] Address [address] [place] [address] Phone Care Team Providers Care Supervisor Metal Fabricating Name Role Phone Jose E Bolivar MD Primary Care Provider [phone] Allergies Active Allergy Reactions Criticality Noted Date [...] series) 10/06 INFLUENZA VACCINE (#1) 2024 Insurance [facility] BLUE ACCESS/TRUE BLUE PPO RX [employer] RX Member Subscriber Plan / Payer (Ef fective 2020-Present) Name:Carlos Mata Relation to Subscriber:Spouse Name:Carlos Mata Subscriber ID:Not on file Payer ID:Not on file Group ID:[id number] Type:RX Commercial Address: [address] Care Teams Supervisor Metal Fabricating Relationship Specialty Start Date End Date Jose E Bolivar MD [address] [address] PCP - General Family Practice 10/10/20
--- OUTSIDE RECORDS SUMMARY | 2024-11-21 10:28 | XMS_ITS | Continuity of Care Document ---
Author Organization [facility] Address [address] [place] [address] Phone Care Team Providers Care Boomswing Operator Name Role Phone Brian Duque MD Unavailable Unavailable Advance Directives Directive Yes / No Effective Date File Name No Information Encounters Encounter Description Practice Location Reason(s) For Visit Diagnoses Date Provider Providers Copied on Encounter [facility], [address], [place], [place], [id number], [place] tel:[phone] [facility] No Information [address] [facility] [facility] [place], [place], [id number], [place]. tel:[phone] Family History Family Member Type Diagnosis Age At Onset No Information Payers Payer name Insurance type Covered libertarian ID Authoriza tion(s) No Information Social History [...]
--- OUTSIDE RECORDS SUMMARY | 2024-11-21 10:28 | XMS_ITS | Clinical Summary ---
Author Organization [facility] Address [address] [place] [address] Care Team Providers Care Real Estate Job Titles Name Role Phone Jose E Bolivar MD Primary Care Provider [phone] Allergies Active Allergy Reactions Criticality Noted Date [...] Comments Blood Pressure 111/73 04/09/2020 2:01 PM PANTRY COOK Pulse 97 04/09/2020 2:01 PM PANTRY COOK Temperature 36.3 C (97.4 F) 04/09/2020 1:20 PM PANTRY COOK Respiratory Rate 18 04/09/2020 2:01 PM PANTRY COOK Oxygen Saturation 99% 04/09/2020 1:20 PM PANTRY COOK Inhaled Oxygen Concentration - - Weight 127 kg (280 lb) 04/09/2020 1:20 PM PANTRY COOK Height 182.9 cm (6') 04/09/2020 1:20 PM PANTRY COOK Body Mass Index 37.97 04/09/2020 1:20 PM PANTRY COOK Plan of Treatment Health Maintenance Due Date [...] patient's age to complete this topic Insurance [facility] Care Teams Real Estate Job Titles Relationship Specialty Start Date End Date Jose E Bolivar MD [address] [facility] [address] [place] [address] PCP - General FAMILY PRACTICE 04/09/20
[2024-11-21 10:32] LABS: Hematocrit 42.8 % (42.0-52.0); Hemoglobin 13.8 g/dL (14.0-18.0); Immature Granulocyte Percent A 0.5 % (0-0.5); Lymphocytes Absolute Auto 2.94 K/mm3 (0.9-3.2); Mean Corpuscular HGB Conc 32.2 g/dl (32-36); Mean Corpuscular Hemoglobin 28.9 pg (26-34); Mean Corpuscular Volume 89.7 fl (80-100); Nucleated Red Blood Cells Absolute Auto 0.000 K/mm3 (0.0-0.012); Nucleated Red Blood Cells Perc 0.0 % (0.0-0.2); Platelet Count Result 217 k/mm3 (150-375); Red Blood Count 4.77 M/mm3 (4.6-6.20); White Blood Count 8.4 K/mm3 (4.5-10.0)
[2024-11-21 10:34] LABS: Add Urine Microscopic? NO; Appearance Urine Clear (Clear); Glucose Urine UA Negative (Negative); Leukocyte Esterase Ur Negative LEU/UL (Negative); Nitrate Urine Negative (Negative); Specific Grav Ur 1.017 (1.001-1.035)
[2024-11-21 10:50] LABS: Alanine Aminotransferase 55 U/L (6-50); Albumin Level 4.3 g/dL (3.5-5.1); Alkaline Phosphatase 66 U/L (38-126); Anion Gap 8 mmol/L (4-12); Aspartate Amino Transferase 42 U/L (17-59); Bilirubin,Total 1.1 mg/dL (0.2-1.3); Blood Urea Nitrogen 16 mg/dL (9-20); Calcium 9.2 mg/dL (8.4-10.2); Carbon Dioxide 31 mmol/L (22-30); Chloride 102 mmol/L (98-107); Estimated CRCL calculation 154 ml/min; Estimated Glomerular Filt Rate > 60; Glucose 102 mg/dL (65-110); Potassium 3.7 mmol/L (3.4-5.0); Sodium 141 mmol/L (137-145); Total Protein 8.0 g/dL (6.3-8.2)
[2024-11-21 11:30] VITALS: BP 155/85; PULSE 65; RESP 16; O2SAT 97
[2024-11-21] MEDS: KETOROLAC 30 MG/ML VIAL (*BKC) IV PUSH (11:30)
--- NOTE | 2024-11-21 11:31 | ED.GENADULT ---
HPI - General Adult General Chief complaint: Back Pain/Injury Stated complaint: low back pain, here for CT for kidney stone Time Seen by Provider: 11/21/24 10:05 History of Present Illness HPI narrative: Patient is a 34-year-old male who presents ER with left flank/ back pain. Seen in the ER few days ago and diagnosed with musculoskeletal injury. Provided prednisone at home as well as lidocaine patches. He has also been taking muscle relaxers. He feels as though the medications are not helping him. He was seen by his PCP who did a urinalysis in the office and noted a small amount of blood. They recommended he get imaging for possible kidney stone. No urinary symptoms. No radiation to the groin or abdomen. No fevers or chills or sweats. No chest pain. No cough. Related Data Home Medications ?Medication ?Instructions ?Recorded ?Confirmed ?Last Taken ?Type lorazepam 1 mg tablet 1 mg PO DAILY PRN Anxiety 11/20/23 11/21/24 Unknown History Allergies Allergy/AdvReac Type Severity Reaction Status Date / Time cefaclor Allergy Severe Swelling Verified 11/21/24 10:12 Review of Systems Review of Systems: All systems reviewed & are unremarkable except as noted in HPI and below Constitutional: Constitutional: Reports no additional constitutional complaints Cardiovascular: Cardiovascular: Reports no additional cardiovascular complaints Respiratory: Respiratory: Reports no additional respiratory complaints Gastrointestinal: Gastrointestinal: Reports no additional gastrointestinal complaints Genitourinary: Genitourinary: Reports no additional male genitourinary complaints Musculoskeletal: Musculoskeletal: Reports no additional musculoskeletal complaints [facility] Past Medical History Medical History SIDDHARTHA (obstructive sleep apnea) GERD (gastroesophageal reflux disease) Panic disorder Surgical History Surgical History History of tonsillectomy Family History Family History Father Hypertension Family history of diabetes mellitus in first degree relative Social History Social History Social History: Smoking status: Never smoker Second hand tobacco smoke exposure: No Alcohol intake: never Substance use: former Substance use type: does not use Do You Feel Safe in your Home?: Yes Lack of Transportation: No Lack of Food: Never True Current Housing: I Have Housing Concerned About Future Housing: No Difficulty Paying Gas/Electric Bills: No Difficulty Paying for Meds: No Currently Unemployed: No Education: Don't Know Difficulty w/ Childcare or Family Care: No Living arrangements: with family Occupation/Education: occupation Gender identity (if verbalized by the patient): Male Sexual Orientation (if Verbalized by the Patient): Straight or Heterosexual Exam Narrative: GENERAL: Well-appearing, well-nourished, and in no acute distress. HEAD: Normocephalic, atraumatic. ENT: Mucous membranes moist. CHEST: Clear to auscultation. No respiratory distress. HEART: Regular rate and rhythm. No murmur heard. Normal peripheral pulses. ABDOMEN: Soft, nontender, nondistended. Back: No reproducible midline tenderness the T/L-spine. There is mild paraspinal tenderness in the T10 through 12 area on the left side EXTREMITIES: Normal range of motion. No edema. SKIN: Warm, dry, no rash. NEURO: Alert and oriented x3. PSYCH: Normal mood and affect. Course Course Emergency Course: Labs normal. CT without kidney stone. There is some mesenteric panniculitis which may be causing some of his discomfort. Patient given reassurance. Vital Signs Vital signs: Vital Signs Temperature 97.9 F 11/21/24 10:05 Pulse Rate 66 11/21/24 10:05 Respiratory Rate 16 11/21/24 10:05 Blood Pressure 157/85 H 11/21/24 10:05 Pulse Oximetry 98 11/21/24 10:05 Oxygen Delivery Room Air 11/21/24 10:05 Temperature 97.9 F 11/21/24 10:05 Pulse Rate 65 11/21/24 11:30 Respiratory Rate 16 11/21/24 11:30 Blood Pressure 155/85 H 11/21/24 11:30 Pulse Oximetry 97 11/21/24 11:30 Oxygen Delivery Room Air 11/21/24 10:05 Medical Decision Making Vital Signs Vital Signs: Vital Signs Temperature 97.9 F 11/21/24 10:05 Pulse Rate 66 11/21/24 10:05 Respiratory Rate 16 11/21/24 10:05 Blood Pressure 157/85 H 11/21/24 10:05 Pulse Oximetry 98 11/21/24 10:05 Oxygen Delivery Room Air 11/21/24 10:05 Temperature 97.9 F 11/21/24 10:05 Pulse Rate 65 11/21/24 11:30 Respiratory Rate 16 11/21/24 11:30 Blood Pressure 155/85 H 11/21/24 11:30 Pulse Oximetry 97 11/21/24 11:30 Oxygen Delivery Room Air 11/21/24 10:05 Lab Data 11/21/24 10:22 11/21/24 10:22 Labs: Lab Results 11/21/24 Range/Units 10:22 WBC 8.4 (4.5-10.0) K/mm3 RBC 4.77 (4.6-6.20) M/mm3 Hgb 13.8 L (14.0-18.0) g/dL Hct 42.8 (42.0-52.0) % MCV 89.7 (80-100) fl MCH 28.9 (26-34) pg MCHC 32.2 (32-36) g/dl RDW 13.2 (11.5-14.5) % Plt Count 217 (150-375) k/mm3 MPV 10.0 (7.4-10.4) fl Immature Gran % (Auto) 0.5 (0-0.5) % Neut % (Auto) 56.9 (45.5-73.1) % Lymph % (Auto) 35.2 (18.3-44.2) % [place] % (Auto) 5.6 (2.6-8.5) % Eos % (Auto) 1.2 (0-4.4) % Baso % (Auto) 0.6 (0.2-1.2) % Lymph # (Auto) 2.94 (0.9-3.2) K/mm3 [place] # (Auto) 0.5 (0.1-0.6) K/mm3 Eos # (Auto) 0.1 (0-0.3) K/mm3 Baso # (Auto) 0.1 (0.0-0.1) K/mm3 Abs Immat Gran (auto) 0.04 H (0.00-0.031) K/mm3 Absolute Neuts (auto) 4.8 (1.3-6.7) K/mm3 Absolute Nucleated RBC 0.000 (0.0-0.012) K/mm3 Nucleated RBC % 0.0 (0.0-0.2) % Sodium 141 (137-145) mmol/L Potassium 3.7 (3.4-5.0) mmol/L Chloride 102 (98-107) mmol/L Carbon Dioxide 31 H (22-30) mmol/L Anion Gap 8 (4-12) mmol/L BUN 16 (9-20) mg/dL Creatinine 0.89 (0.7-1.3) mg/dL Estim Creat Clear Calc 154 ml/min Estimated GFR > 60 (59 - ) Glucose 102 (65-110) mg/dL Calcium 9.2 (8.4-10.2) mg/dL Total Bilirubin 1.1 (0.2-1.3) mg/dL AST 42 (17-59) U/L ALT 55 H (6-50) U/L Alkaline Phosphatase 66 (38-126) U/L Total Protein 8.0 (6.3-8.2) g/dL Albumin 4.3 (3.5-5.1) g/dL Urine Color Yellow (Yellow) Urine Appearance Clear (Clear) Urine pH 7.0 (5.0-9.0) Ur Specific Rico 1.017 (1.001-1.035) Urine Protein Negative (Negative) mg/dL Urine Glucose (UA) Negative (Negative) mg/dL Urine Ketones Negative (Negative) mg/dL Ur Blood (Man) Negative (Negative) Urine Nitrate Negative (Negative) Urine Bilirubin Negative (Negative) Urine Urobilinogen 1.0 (<2.0) mg/dL Leukocyte Esterase Rfl Negative (Negative) MYRA/UL Imaging Data Radiologist's impression: ITS Impressions Abdomen/Pelvis CT 11/21/24 11:13 Impression: Diffuse hepatic steatosis. 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 Discharge Plan Discharge Clinical Impression: Mesenteric panniculitis, Acute flank pain Patient Disposition: Home Condition: Stable Additional Instructions: Return ER if you have fever 100.4? F, you can not keep down food or water, you lose consciousness, or you have additional concerns. Patient Language: Occitan Prescriptions: No Action lorazepam 1 mg tablet 1 mg PO DAILY PRN (Reason: Anxiety) tizanidine 2 mg tablet 2 mg PO TID PRN (Reason: muscle spasticity) Qty: 42 0RF lidocaine 5 % adhesive patch,medicated 1 patch topical DAILY Qty: 15 0RF Rx Instructions: leave on most painful area for up to 12 hrs buspirone 10 mg tablet 10 mg PO TID PRN (Reason: anxiety) Qty: 90 0RF paroxetine HCl 30 mg tablet 30 mg PO DAILY Qty: 90 0RF Follow-up/Referrals: Jose E Bolivar MD [Primary Care Provider] - 1 Week
[2024-11-21 12:06] VITALS: BP 154/80; PULSE 66; RESP 16; O2SAT 100
== END 2024-11-21 12:07 | disposition home or self-care (01) ==
PROVIDERS: Emergency Provider Emergency Medicine; PCP Family Medicine
DX: K65.4 Sclerosing mesenteritis (principal); R10.9 Unspecified abdominal pain; G47.33 Obstructive sleep apnea (adult) (pediatric); K21.9 Gastro-esophageal reflux disease without esophagitis; K76.0 Fatty (change of) liver, not elsewhere classified
CPT/HCPCS: 36415; 74176; 80053; 81003; 85025; 96374; 99284; J1885